=== PATIENT | male | born 1970 | race Caucasian/White ===

== ENCOUNTER 2017-01-01 14:03 | Emergency (ER) | payer SELFPAY ==
[~2017-01-01] VITALS: Ht 180.3 cm; Wt 105.0 kg
[2017-01-01 14:10] VITALS: TEMP 36.6; Ht 180.3 cm; Wt 105.0 kg
[2017-01-01] MEDS ORDERED: SODIUM CHLORIDE 0.9% 1000ML 1,000 ML IV ONE (14:45)
[2017-01-01] MEDS ORDERED: MoRPHine SULFATE 4 MG/ML 1 ML CARP\\VIAL IV PRN (14:45)
--- NOTE | 2017-01-01 14:47 | EMERGENCY ROOM VISIT NOTE ---
History First contact with patient: 14:25 Chief Complaint: RECTAL PAIN Stated Complaint: PAIN IN ANUS AREA, BOWELS Nursing Triage Summary: Pt standing upon my entry into the room. c/o rectal pain. Pt aware to change into gown and the possibility of rectal exam. History of Present Illness The patient is a 46 year old male who presents to the Emergency Room with complaints of rectal pain that has been going on for approximately 1 month. The patient says that about a month ago he felt a "lump" in his rectal area. The lump eventually did go away, but returned approximately a week ago. He is having significant pain with bowel movements. He also notes passing some blood in his stool today. He denies any constipation. No diarrhea. He denies any nausea or vomiting. He denies any fever or chills. He denies any urinary symptoms. Review of Systems 10 system review performed and negative unless noted in HPI or below Past Medical/Surgical History History of kidney stones Family History Cancer Social History Smoking Status: Never Smoker Alcohol Use: none Marital Status: Housing Status: lives with family Occupation Status: employed Current/Historical Medications Scheduled PRN Oxycodone/Acetaminophen 5MG/325MG (Percocet 5MG/325MG), 1-2 TABS PO Q5H PRN for Pain Physical Exam Vital Signs Date Time Temp Pulse Resp B/P (MAP) Pulse Ox O2 Delivery O2 Flow Rate FiO2 01/01/17 17:33 68 16 160/91 97 01/01/17 16:44 68 16 160/91 97 Room Air 01/01/17 14:10 36.6 88 16 156/103 96 Room Air Physical Exam VITALS: Vitals are noted on the nurse's note and reviewed by myself. Vital signs stable. GENERAL: 46-year-old male, in no acute distress, nondiaphoretic, well-developed well-nourished. SKIN: The skin was without rashes, erythema, edema, or bruising. HEAD: Normocephalic atraumatic. MOUTH: Mucous membranes moist. NECK: . No JVD. HEART: Regular rate and rhythm without murmurs gallops or rubs. LUNGS: Clear to auscultation bilaterally without wheezes, rales or rhonchi. No accessory muscle use. ABDOMEN: Positive bowel sounds x 4.Soft, nontender, without organomegaly. No guarding or rebound tenderness. RECTAL: No external hemorrhoids noted. No fissures palpated. No palpable masses or internal hemorrhoids. Significant pain noted. MUSCULOSKELETAL: No muscle atrophy, erythema, or edema noted. Strength 5/5 throughout. NEURO: Patient was alert and oriented to person place and time. Normal sensation to touch. No focal neurological deficits. Medical Decision & Procedures ER Provider Diagnostic Interpretation: Patient Name: SY ALBARRAN Unit Number: [id number] Dictated: 01/01/171625 Transcribed: 01/01/171625 ARG Printed Date/Time: [~ rep prt dt]/[~ rep prt tm] [~ rep ct labl] - [~ rep ct ivnm] [facility] [address] Dictated: 01/01/171625 Transcribed: 01/01/171625 ARG Printed Date/Time: [~ rep prt dt]/[~ rep prt tm] [~ rep ct labl] - [~ rep ct ivnm] CT PELVIS W/IV CONT ONLY (CT) CT DOSE: 376.50 mGy.cm CLINICAL HISTORY: Anal pain. Possible abscess. TECHNIQUE: The patient was scanned in a dynamic helical fashion during intravenous administration 118 cc of Optiray 320. A dose lowering technique was utilized adhering to the principles of ALARA. COMPARISON STUDY: Noncontrast study dated 10/30/2013 FINDINGS: The appendix is visualized and appears normal. There is no evidence of acute sigmoid diverticulitis. There is no evidence of pathologic adenopathy. There is no evidence of pathologic pelvic bowel dilatation. No perianal sinus tracts, or abscesses are visualized. There are no bony destructive lesions. IMPRESSION: No acute findings. No perianal sinus tracts or abscesses identified. Electronically signed by: Donaldo Feliciano M.D. 01/01/2017 4:28 PM Dictated Date/Time: 01/01/2017 4:26 PM The status of this report is Signed. Draft = Not yet reviewed or approved by Radiologist. Signed = Reviewed and approved by Radiologist. <AttendingPhy></AttendingPhy> <FamilyPhy>Haris Hernandez M.D.</FamilyPhy> < PrimaryPhy>Haris Hernandez M.D.</PrimaryPhy> <UnitNumber>[id number]</UnitNumber> < VisitNumber>[id number]</VisitNumber> <PatientName>SY ALBARRAN</ PatientName> <DateOfBirth>1970</DateOfBirth> <Location>[facility]</Location> < ServiceDate>01/01/17</ServiceDate> <MNE>ESINDI</MNE> <OrderingPhy>Latoya Alvarado PA-C</OrderingPhy> <OrderingPhyMNE>f rep ord dr red</OrderingPhyMNE> < DictatingPhyMNE>f rep dict dr red</DictatingPhyMNE> <CCListMNE>f rep ct mne</ CCListMNE> <AdmittingPhyMNE>f pt admit dr red</AdmittingPhyMNE> <AttendingPhyMNE >f pt attend dr red</AttendingPhyMNE> <ConsultingPhyMNE>f pt consult dr red</ConsultingPhyMNE> <FamilyPhyMNE>f pt fam dr red</FamilyPhyMNE> <OtherPhyMNE>f pt other dr red</OtherPhyMNE> < PrimaryPhyMNE>f pt prim care dr red</PrimaryPhyMNE> <ReferringPhyMNE>f pt referring dr red</ReferringPhyMNE> CHEST ONE VIEW PORTABLE CLINICAL HISTORY: Palpable sternal mass ANAL PAIN COMPARISON STUDY: No previous studies for comparison. FINDINGS: The cardiac and mediastinal contours are normal. There is no evidence of focal pulmonary consolidation. There is no evidence of failure. No pleural effusions are visualized.[ History of a noted that an AP study of the chest cannot be utilized to evaluate the sternum. IMPRESSION: No active disease in the chest. Electronically signed by: Donaldo Feliciano M.D. 01/01/2017 3:36 PM Dictated Date/Time: 01/01/2017 3:35 PM The status of this report is Signed. Draft = Not yet reviewed or approved by Radiologist. Signed = Reviewed and approved by Radiologist. <AttendingPhy></AttendingPhy> <FamilyPhy>Haris Hernandez M.D.</FamilyPhy> < PrimaryPhy>Haris Hernandez M.D.</PrimaryPhy> <UnitNumber>[id number]</UnitNumber> < VisitNumber>[id number]</VisitNumber> Laboratory Results 01/01/17 14:55 Red Blood Count 4.92, Mean Corpuscular Volume 87.0, Mean Corpuscular Hemoglobin 31.9, Mean Corpuscular Hemoglobin Concent 36.7, Mean Platelet Volume 9.0, Neutrophils (%) (Auto) 68.5, Lymphocytes (%) (Auto) 21.6, Monocytes (%) (Auto) 6.5, Eosinophils (%) (Auto) 2.1, Basophils (%) (Auto) 0.9, Neutrophils # (Auto) 4.60, Lymphocytes # (Auto) 1.45, Monocytes # (Auto) 0.44, Eosinophils # (Auto) 0.14, Basophils # (Auto) 0.06 01/01/17 14:55 Test 01/01/17 14:55 01/01/17 15:05 White Blood Count 6.72 K/uL (4.8-10.8) Red Blood Count 4.92 M/uL (4.7-6.1) Hemoglobin 15.7 g/dL (14.0-18.0) Hematocrit 42.8 % (42-52) Mean Corpuscular Volume 87.0 fL (80-100) Mean Corpuscular Hemoglobin 31.9 pg (25-34) Mean Corpuscular Hemoglobin Concent 36.7 g/dl (32-36) Platelet Count 222 K/uL (130-400) Mean Platelet Volume 9.0 fL (7.4-10.4) Neutrophils (%) (Auto) 68.5 % Lymphocytes (%) (Auto) 21.6 % Monocytes (%) (Auto) 6.5 % Eosinophils (%) (Auto) 2.1 % Basophils (%) (Auto) 0.9 % Neutrophils # (Auto) 4.60 K/uL (1.4-6.5) Lymphocytes # (Auto) 1.45 K/uL (1.2-3.4) Monocytes # (Auto) 0.44 K/uL (0.11-0.59) Eosinophils # (Auto) 0.14 K/uL (0-0.5) Basophils # (Auto) 0.06 K/uL (0-0.2) RDW Standard Deviation 40.6 fL (36.4-46.3) RDW Coefficient of Variation 12.7 % (11.5-14.5) Immature Granulocyte % (Auto) 0.4 % Immature Granulocyte # (Auto) 0.03 K/uL (0.00-0.02) Anion Gap 6.0 mmol/L (3-11) Est Creatinine Clear Calc Drug Dose 103.4 ml/min Estimated GFR () 92.8 Estimated GFR (Non- 80.1 BUN/Creatinine Ratio 11.2 (10-20) Calcium Level 9.2 mg/dl (8.5-10.1) Total Bilirubin 0.6 mg/dl (0.2-1) Aspartate Amino Transf (AST/SGOT) 20 U/L (15-37) Alanine Aminotransferase (ALT/SGPT) 33 U/L (12-78) Alkaline Phosphatase 67 U/L (45-117) Total Protein 7.9 gm/dl (6.4-8.2) Albumin 3.9 gm/dl (3.4-5.0) Globulin 4.0 gm/dl (2.5-4.0) Albumin/Globulin Ratio 1.0 (0.9-2) Urine Color YELLOW Urine Appearance CLEAR (CLEAR) Urine pH 5.5 (4.5-7.5) Urine Specific [place] 1.026 (1.000-1.030) Urine Protein NEG (NEG) Urine Glucose (UA) NEG (NEG) Urine Ketones NEG (NEG) Urine Occult Blood 1+ (NEG) Urine Nitrite NEG (NEG) Urine Bilirubin NEG (NEG) Urine Urobilinogen NEG (NEG) Urine Leukocyte Esterase NEG (NEG) Urine WBC (Auto) 0 /hpf (0-5) Urine RBC (Auto) 0-4 /hpf (0-4) Urine Hyaline Casts (Auto) 1-5 /lpf (0-5) Urine Epithelial Cells (Auto) 0-5 /lpf (0-5) Urine Bacteria (Auto) NEG (NEG) Medications Administered Medications (Trade) Dose Ordered Sig/Bruna Route Start Time Stop Time Status Last Admin Dose Admin Morphine Sulfate (MoRPHine SULFATE INJ) 4 mg Q1H PRN IV 01/01/17 14:45 01/01/17 17:55 DC 01/01/17 15:01 4 MG Sodium Chloride 1,000 ml @ 999 mls/hr Q1H1M ONCE IV 01/01/17 14:45 01/01/17 15:45 DC 01/01/17 15:02 999 MLS/HR Hydromorphone HCl (Dilaudid Inj) 1 mg STK-MED ONCE .ROUTE 01/01/17 16:46 01/01/17 16:47 DC 01/01/17 16:49 1 MG Hydrocortisone (Proctozone Hc 2.5% Crm) 1 appln NOW ONCE EXT 01/01/17 17:15 01/01/17 17:16 DC 01/01/17 17:20 1 APPLN ED Course Patient was seen and examined Vital signs including blood pressure were reviewed medications list was verified with patient Labs were obtained, and a saline lock was established The patient was given morphine 4 mg IV for pain. He was hydrated with 1 L of normal saline. Imaging was performed and reviewed The patient was reassessed. He was still complaining of pain. He was given 1 dose of Dilaudid 1 mg IV. We discussed the results of his workup. He voiced understanding. He was given 1 tube of Anusol to go I reviewed discharge instructions the patient. They voiced understanding and had no further questions. Medical Decision Differential diagnosis: Internal hemorrhoids, abscess, anal fissure, lower GI bleed this patient is a 46-year-old male presented to the emergency department with complaints of rectal pain. On exam, the patient's abdomen was benign. He did have a significant amount of rectal pain during the digital rectal exam. I cannot palpate any masses or fissures. I ordered a CT of the pelvis to rule out abscess. No acute abnormalities were noted. It is possible that he may have internal hemorrhoids and I am unable to palpate. The patient was advised to follow-up with the GI doctor if his pain persists. He agrees to return to the emergency department with any new or persistent symptoms. This chart was completed in part utilizing [employer] Active Speech Voice Recognition software. Attempts were made to minimize the grammatical errors, random word insertions, pronoun errors and incomplete sentences. Any formal questions or concerns about the content, text or information contained within the body of this dictation should be directly addressed to the provider for clarification. Medication Reconcilliation Current Medication List: was personally reviewed by me Blood Pressure Screening Patient's blood pressure: Elevated blood pressure (advised to follow-up with his primary care physician to have this rechecked.) Impression Primary Impression: Rectal pain Departure Information Dispostion Home / Self-Care Condition GOOD Prescriptions Oxycodone/Acetaminophen 5MG/325MG (PERCOCET 5MG/325MG) Tab 1-2 TABS PO Q5H Y for Pain, #15 TAB For Initial Treatment Prov: Latoya Alvarado PA-C 01/01/17 Referrals Haris Hernandez M.D. (PCP) Patient Instructions My [facility] Additional Instructions You were evaluated in the emergency department for rectal pain. A CAT scan did not show any signs of infection. Please use Anusol cream every 6 hours as needed for discomfort Percocet : Take 1-2 pills every four hours for pain. Avoid alcohol, operating machinery or dangerous equipment, working on ladders or roofs, DRIVING, or situations where being under the influence may be dangerous. It is recommended to use an [id number] stool softener such as Colace, 100mg twice daily while taking this medication to avoid constipation. If the rectal pain persists, you may need to see a GI doctor for possibly a procedure such as a colonoscopy It was also noticed that your blood pressure was elevated in the emergency department. These have this rechecked Return to the emergency department if you have any of the following symptoms: -Fever of 103F or greater -Persistent vomiting - Persistent diarrhea -Lethargy -Chest pain -Shortness of breath -Worsening pain
[2017-01-01 15:08] LABS: BASO % 0.9 %; BASO ABS # 0.06 K/uL (0-0.2); COMPLETE YES; EOS % 2.1 %; HEMATOCRIT 42.8 % (42-52); IG% 0.4 %; LYMPH % 21.6 %; LYMPH ABS # 1.45 K/uL (1.2-3.4); MEAN CORPUSCULAR HEMOGLOBIN 31.9 pg (25-34); MEAN CORPUSCULAR HGB CONC 36.7 g/dl (32-36); MONO % 6.5 %; NEUT % 68.5 %; PLATELET COUNT 222 K/uL (130-400); RED BLOOD COUNT 4.92 M/uL (4.7-6.1); WHITE BLOOD COUNT 6.72 K/uL (4.8-10.8)
[2017-01-01 15:16] LABS: URINE APPEARANCE CLEAR (CLEAR); URINE BILIRUBIN NEG (NEG); URINE COLOR YELLOW; URINE EPITHELIAL CELL AUTO 0-5 /lpf (0-5); URINE NITRITE NEG (NEG); URINE PH 5.5 (4.5-7.5); URINE SPECIFIC GRAVITY 1.026 (1.000-1.030); UROBILINOGEN NEG (NEG)
[2017-01-01 15:17] LABS: MANUAL MICROSCOPIC REQUIRED? NO; REVIEW REQ? NO
[2017-01-01 15:27] LABS: BUN/CREATININE RATIO 11.2 (10-20); CALCIUM 9.2 mg/dl (8.5-10.1); CREATININE 1.1 mg/dl (0.60-1.40); POTASSIUM 3.8 mmol/L (3.5-5.1)
[2017-01-01] MEDS ORDERED: OPTIRAY 320 IV PRN (15:30)
--- NOTE | 2017-01-01 15:37 | DIAGNOSTIC IMAGING REPORT ---
CHEST ONE VIEW PORTABLE CLINICAL HISTORY: Palpable sternal mass ANAL PAIN COMPARISON STUDY: No previous studies for comparison. FINDINGS: The cardiac and mediastinal contours are normal. There is no evidence of focal pulmonary consolidation. There is no evidence of failure. No pleural effusions are visualized.[ History of a noted that an AP study of the chest cannot be utilized to evaluate the sternum. IMPRESSION: No active disease in the chest. Electronically signed by: Donaldo Feliciano M.D. 01/01/2017 3:36 PM Dictated Date/Time: 01/01/2017 3:35 PM
--- NOTE | 2017-01-01 16:30 | DIAGNOSTIC IMAGING REPORT ---
CT PELVIS W/IV CONT ONLY (CT) CT DOSE: 376.50 mGy.cm CLINICAL HISTORY: Anal pain. Possible abscess. TECHNIQUE: The patient was scanned in a dynamic helical fashion during intravenous administration 118 cc of Optiray 320. A dose lowering technique was utilized adhering to the principles of ALARA. COMPARISON STUDY: Noncontrast study dated 10/30/2013 FINDINGS: The appendix is visualized and appears normal. There is no evidence of acute sigmoid diverticulitis. There is no evidence of pathologic adenopathy. There is no evidence of pathologic pelvic bowel dilatation. No perianal sinus tracts, or abscesses are visualized. There are no bony destructive lesions. IMPRESSION: No acute findings. No perianal sinus tracts or abscesses identified. Electronically signed by: Donaldo Feliciano M.D. 01/01/2017 4:28 PM Dictated Date/Time: 01/01/2017 4:26 PM
[2017-01-01] MEDS ORDERED: HYDROmorphone INJ 1 MG/ML SYR ONE (16:46)
[2017-01-01] MEDS ORDERED: HYDROCORTISONE HC 2.5% CRM 30GM TUBE EXT ONE (17:15)
[2017-01-01] MEDS ORDERED: OXYC-57 PO (17:16)
[2017-01-01 17:33] VITALS: BP 160/91; PULSE 68; O2SAT 97
== END 2017-01-01 17:33 | disposition home or self-care (01) ==
LOC: C.EDB 14:04 → C.EDC 17:33
DX: K62.89 Other specified diseases of anus and rectum (principal); Z87.440 Personal history of urinary (tract) infections; Z80.9 Family history of malignant neoplasm, unspecified

== ENCOUNTER 2017-03-03 16:10 | Observation (INO) | payer SELFPAY ==
[~2017-03-03] VITALS: Ht 180.3 cm; Wt 106.8 kg
[~2017-03-03 16:10] MED LIST: OXYC-57 PO
[2017-03-03] MEDS ORDERED: ASPIRIN 81 MG CHEW PO STA (16:19)
[2017-03-03 16:40] LABS: BASO % 0.8 %; BASO ABS # 0.05 K/uL (0-0.2); COMPLETE YES; EOS % 2.2 %; HEMATOCRIT 43.9 % (42-52); IG% 0.6 %; LYMPH % 29.3 %; LYMPH ABS # 1.91 K/uL (1.2-3.4); MEAN CELL VOLUME 86.6 fL (80-100); MEAN CORPUSCULAR HGB CONC 36.9 g/dl (32-36); MEAN PLATELET VOLUME 8.9 fL (7.4-10.4); MONO % 10.1 %; PLATELET COUNT 228 K/uL (130-400); RED BLOOD COUNT 5.07 M/uL (4.7-6.1); WHITE BLOOD COUNT 6.51 K/uL (4.8-10.8)
--- NOTE | 2017-03-03 16:46 | DIAGNOSTIC IMAGING REPORT ---
CHEST ONE VIEW PORTABLE CLINICAL HISTORY: Chest pain. COMPARISON STUDY: Chest radiograph January 31, 2017. FINDINGS: Lung volumes are at the lower limits of normal. No pneumothorax or pleural effusion is present. There is no consolidation or evidence of pulmonary edema. Cardiomediastinal silhouette is normal. Appearance of the chest is unchanged. IMPRESSION: No acute cardiopulmonary findings. Electronically signed by: Sixto Diane M.D. 03/03/2017 4:45 PM Dictated Date/Time: 03/03/2017 4:44 PM
[2017-03-03 16:54] LABS: INR 0.9 (0.9-1.1)
--- NOTE | 2017-03-03 16:55 | EMERGENCY ROOM VISIT NOTE ---
History Report prepared by Thelma: Tiffany Castillo Under the Supervision of: Oleg WhitingO. First contact with patient: 16:16 Chief Complaint: CHEST PAIN Stated Complaint: CHEST PAINS Nursing Triage Summary: triage note: pt reports left sided chest pain x 3 weeks. pt reports pain is constant. History of Present Illness The patient is a 46 year old male who presents to the Emergency Room with complaints of constant chest pain for the past 3 weeks. He states that he woke up one morning with the pain and it has been constant since that time. His pain radiates down his left arm and into his neck and is worsened with exertion. It does not improve with rest. Taking a deep breath exacerbates his pain as well. The patient's gave him 81 mg of aspirin last night and again this morning. He states that this seems to have helped alleviate some of his discomfort. He rates his current pain as a 2/10 in severity. The patient denies nausea, vomiting, SOB, abdominal pain, pain or swelling in his legs. He denies any personal history of blood clots. He has never had a cardiac catheterization or stress test. He called his PCP's office today and was advised to come to the ED for further evaluation. The patient denies any family history of early cardiac disease. notes that he had similar pain last summer, but his current pain is more severe than previous episodes. Source of History: patient, spouse/significant other Onset: 3 weeks ago Position: chest Symptom Intensity: 2/10 Quality: other (radiating ) Timing: constant Modifying Factors (Worsening): exertion, breathing Modifying Factors (Relieving): other (aspirin) Associated Symptoms: + neck pain, No SOB, No nausea, No vomiting, No abdominal pain Note: Chest pain radiates to his left arm. Denies pain and swelling in legs Review of Systems See HPI for pertinent positives & negatives. A total of 10 systems reviewed and were otherwise negative. Past Medical & Surgical Medical Problems: (1) Asthma (2) Rectal pain (3) Ureteral calculus, right (4) Ureteral calculus, right Family History Cancer Diabetes mellitus Hypertension Social History Smoking Status: Never Smoker Smokeless Tobacco Use: Yes Alcohol Use: none Marital Status: Housing Status: lives with family Occupation Status: employed Current/Historical Medications No Active Prescriptions or Reported Meds Allergies Coded Allergies: No Known Allergies (Verified , 03/03/17) Physical Exam Vital Signs Date Time Temp Pulse Resp B/P (MAP) Pulse Ox O2 Delivery O2 Flow Rate FiO2 03/03/17 16:40 95 Room Air 03/03/17 16:40 82 19 154/101 96 Room Air 03/03/17 16:33 Room Air 03/03/17 16:28 79 03/03/17 16:12 36.7 85 18 180/98 95 Room Air Physical Exam GENERAL: Patient is awake, alert, and in no acute distress. Patient is resting comfortably and showing no signs of anxiety EYES: The conjunctivae are clear. The pupils are round and reactive. EARS, NOSE, MOUTH AND THROAT: The nose is without any evidence of any deformity. Mucous membranes are moist tongue is midline NECK: The neck is nontender and supple. RESPIRATORY: Normal respiratory effort is noted there is no evidence of wheezing rhonchi or rales CARDIOVASCULAR: Regular rate and rhythm noted there no murmurs rubs or gallops normal S1 normal S2 GASTROINTESTINAL: The abdomen is soft. Bowel sounds are present in all quadrants. Abdomen is nontender MUSCULOSKELETAL/EXTREMITIES: There is no evidence of gross deformity full range of motion is noted in the hips and shoulders SKIN: There is no obvious evidence of any rash. There are no petechiae, pallor or cyanosis noted. NEUROLOGIC: Patient is awake alert and oriented x3 Medical Decision & Procedures ER Provider Diagnostic Interpretation: Radiology results as stated below per my review and radiologist interpretation: CHEST ONE VIEW PORTABLE CLINICAL HISTORY: Chest pain. COMPARISON STUDY: Chest radiograph January 31, 2017. FINDINGS: Lung volumes are at the lower limits of normal. No pneumothorax or pleural effusion is present. There is no consolidation or evidence of pulmonary edema. Cardiomediastinal silhouette is normal. Appearance of the chest is unchanged. IMPRESSION: No acute cardiopulmonary findings. Electronically signed by: Sixto Diane M.D. 03/03/2017 4:45 PM Dictated Date/Time: 03/03/2017 4:44 PM Laboratory Results 03/03/17 16:28 Red Blood Count 5.07, Mean Corpuscular Volume 86.6, Mean Corpuscular Hemoglobin 32.0, Mean Corpuscular Hemoglobin Concent 36.9, Mean Platelet Volume 8.9, Neutrophils (%) (Auto) 57.0, Lymphocytes (%) (Auto) 29.3, Monocytes (%) (Auto) 10.1, Eosinophils (%) (Auto) 2.2, Basophils (%) (Auto) 0.8, Neutrophils # (Auto ) 3.71, Lymphocytes # (Auto) 1.91, Monocytes # (Auto) 0.66, Eosinophils # (Auto ) 0.14, Basophils # (Auto) 0.05 03/03/17 16:28 Test 03/03/17 16:28 03/03/17 16:32 White Blood Count 6.51 K/uL (4.8-10.8) Red Blood Count 5.07 M/uL (4.7-6.1) Hemoglobin 16.2 g/dL (14.0-18.0) Hematocrit 43.9 % (42-52) Mean Corpuscular Volume 86.6 fL (80-100) Mean Corpuscular Hemoglobin 32.0 pg (25-34) Mean Corpuscular Hemoglobin Concent 36.9 g/dl (32-36) Platelet Count 228 K/uL (130-400) Mean Platelet Volume 8.9 fL (7.4-10.4) Neutrophils (%) (Auto) 57.0 % Lymphocytes (%) (Auto) 29.3 % Monocytes (%) (Auto) 10.1 % Eosinophils (%) (Auto) 2.2 % Basophils (%) (Auto) 0.8 % Neutrophils # (Auto) 3.71 K/uL (1.4-6.5) Lymphocytes # (Auto) 1.91 K/uL (1.2-3.4) Monocytes # (Auto) 0.66 K/uL (0.11-0.59) Eosinophils # (Auto) 0.14 K/uL (0-0.5) Basophils # (Auto) 0.05 K/uL (0-0.2) RDW Standard Deviation 40.3 fL (36.4-46.3) RDW Coefficient of Variation 12.7 % (11.5-14.5) Immature Granulocyte % (Auto) 0.6 % Immature Granulocyte # (Auto) 0.04 K/uL (0.00-0.02) Prothrombin Time 10.0 SECONDS (9.0-12.0) Prothromb Time International Ratio 0.9 (0.9-1.1) Activated Partial Thromboplast Time 26.8 SECONDS (21.0-31.0) Partial Thromboplastin Ratio 1.0 Anion Gap 8.0 mmol/L (3-11) Est Creatinine Clear Calc Drug Dose 93.0 ml/min Estimated GFR () 80.3 Estimated GFR (Non- 69.3 BUN/Creatinine Ratio 10.9 (10-20) Calcium Level 8.8 mg/dl (8.5-10.1) Total Bilirubin 0.5 mg/dl (0.2-1) Direct Bilirubin 0.1 mg/dl (0-0.2) Aspartate Amino Transf (AST/SGOT) 18 U/L (15-37) Alanine Aminotransferase (ALT/SGPT) 37 U/L (12-78) Alkaline Phosphatase 66 U/L (45-117) Troponin I < 0.015 ng/ml (0-0.045) Total Protein 7.8 gm/dl (6.4-8.2) Albumin 3.8 gm/dl (3.4-5.0) Lipase 189 U/L (73-393) Bedside D-Dimer 217 ng/mlFEU (0-450) Laboratory results per my review. Medications Administered Medications (Trade) Dose Ordered Sig/Bruna Route Start Time Stop Time Status Last Admin Dose Admin Aspirin (Aspirin Chew) 324 mg NOW STAT PO 03/03/17 16:19 03/03/17 16:20 DC 03/03/17 16:40 324 MG ECG Indication: chest pain Rate (beats per minute): 80 Rhythm: normal sinus Findings: no acute ischemic change, no ectopy Comparison ECG Date: no prior available ED Course 1616: The patient was evaluated in room C2B. A complete history and physical examination were performed. 1619: Aspirin 324 mg PO 1717: I spoke with Maria Elena Menon PA-C. We discussed the patients case. [facility] 1721: I reassessed the patient at this time. He is feeling better and resting comfortably. I discussed the results and treatment plan with the patient. I answered all pertaining questions that he had. He expressed understanding and verbalized agreement. Medical Decision Differential diagnosis: Etiologies such as cardiac ischemia, aortic dissection, pulmonary embolism, pneumonia, pneumothorax, musculoskeletal, infections, pericarditis, myocarditis , esophageal rupture, gastrointestinal, as well as others were entertained. Nursing notes reviewed. Additional history is obtained from the patient's significant other. The patient is a 46-year-old male who presented to emergency department for an evaluation of chest discomfort with radiation to the neck and the arm. The patient's pain appeared worsened with exertion. I discussed the patient's laboratory and radiographic studies with him. I also discussed the limitations of the emergency department workup for chest pain with him. Given the patient's symptoms as well as his risk factors I discussed his case with the on-call [facility] hospitalist. They've agreed to evaluate the patient in the emergency department for further management and disposition. The patient was treated with aspirin in the emergency department. Medication Reconcilliation Current Medication List: was personally reviewed by me Blood Pressure Screening Patient's blood pressure: Elevated blood pressure Blood pressure disposition: Elevated BP felt to be situational Consults Time Called: 1714 Consulting Physician: Maria Elena Menon PA-C Returned Call: [phone] I spoke with Maria Elena Menon PA-C. We discussed the patients case. [facility]. Impression Primary Impression: Substernal chest pain Scribe Attestation The scribe's documentation has been prepared under my direction and personally reviewed by me in its entirety. I confirm that the note above accurately reflects all work, treatment, procedures, and medical decision making performed by me. Departure Information Dispostion Being Evaluated By Hospitalist Prescriptions No Active Prescriptions or Reported Meds Referrals Haris Heranndez M.D. (PCP) Patient Instructions My [facility]
[2017-03-03 16:59] LABS: BLOOD UREA NITROGEN 13 mg/dl (7-18); BUN/CREATININE RATIO 10.9 (10-20); CALCIUM 8.8 mg/dl (8.5-10.1); CARBON DIOXIDE 25 mmol/L (21-32); CHLORIDE 105 mmol/L (98-107); CREATININE 1.24 mg/dl (0.60-1.40); GLUCOSE 90 mg/dl (70-99); POTASSIUM 4.1 mmol/L (3.5-5.1); SODIUM 138 mmol/L (136-145)
[2017-03-03 17:00] LABS: ALT/SGPT 37 U/L (12-78); AST/SGOT 18 U/L (15-37)
[2017-03-03 17:04] LABS: ALKALINE PHOSPHATASE 66 U/L (45-117)
[2017-03-03] MEDS ORDERED: IV FLUIDS COMPLETED PRN (18:00)
--- NOTE | 2017-03-03 18:38 | History and Physical ---
History & Physical Date & Time of Service: Mar 03, 2017 at 18:11 Chief Complaint: Chest Pains Primary Care Physician: Haris Hernandez M.D. History of Present Illness Source: patient, family This is a 46 year old M who has assigned physician of Dr. Hernandez on his insurance but has never seen David Rodriguez in the past, who was brought to the ED from his , because of patient's chronically recurring chest pain one episode of which was present earlier today. The patient himself while awake and alert has vague descriptions of the chest pain and cannot correlate what makes the discomfort better or worse. Patient reports that chest pain can be left sided with pain of his left neck and arm. This problem appears to have been ongoing for months. 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 In other review of systems, patient reports no to headache, lightheadedness, shortness of breath, palpitations, abdominal pain, changes in urination, or changes in bowel movements, or edema Patient denies regular medications at home because he has never been diagnosed with health problems Denies toxic habits of smoking, alcohol, or drugs Family history of mother with palpitations, family history of cancer and diabetes EKG 80 beats per minute normal sinue rythm with incomplete right bundle branch block, troponin negative x 1 Vitals when examined by hospitalist, 96 bpm, blood pressure 154/101, breathing on room air and saturating above 95% Past Medical/Surgical History Medical Problems: (1) Asthma Status: Chronic (2) Rectal pain Status: Resolved (3) Ureteral calculus, right Status: Resolved (4) Ureteral calculus, right Status: Resolved Family History Cancer Diabetes mellitus Hypertension Social History Smoking Status: Never Smoker Smokeless Tobacco Use: Yes Marital Status: Occupational Status: employed Multi-Drug Resistant Organisms History of MDRO: No Allergies Coded Allergies: No Known Allergies (Verified , 03/03/17) Home Medications No Active Prescriptions or Reported Meds Review of Systems Constitutional: No fever, No weakness, No fatigue Eyes: No worsening of vision, No discharge ENT: No hearing loss, No unusual epistaxis, No nasal symptoms, No sore throat, No trouble swallowing Respiratory: No cough, No sputum, No wheezing, No shortness of breath, No hemoptysis Cardiovascular: + chest pain, No edema, No palpitations Abdomen: No pain, No nausea, No vomiting, No diarrhea, No constipation Musculoskeletal: No joint pain, No muscle pain, No swelling, No calf pain Genitourinary - Male: No dysuria Neurologic: No numbness/tingling Psychiatric: No substance abuse Endocrine: No fatigue Hematologic / Lymphatic: No abnormal bleeding/bruising Integumentary: No rash, No itch Physical Exam Vital Signs Date Time Temp Pulse Resp B/P (MAP) Pulse Ox O2 Delivery O2 Flow Rate FiO2 03/03/17 16:40 95 Room Air 03/03/17 16:40 82 19 154/101 96 Room Air 03/03/17 16:33 Room Air 03/03/17 16:28 79 03/03/17 16:12 36.7 85 18 180/98 95 Room Air General Appearance: WD/WN, no apparent distress Head: normocephalic, atraumatic Eyes: normal inspection, EOMI, sclerae normal ENT: normal ENT inspection, hearing grossly normal, pharynx normal Neck: supple, thyroid normal, no JVD, no carotid bruits, trachea midline Respiratory/Chest: chest non-tender, lungs clear, normal breath sounds, no respiratory distress, no accessory muscle use Cardiovascular: regular rate, rhythm, no edema, no gallop, no JVD, no murmur, normal peripheral pulses Abdomen/GI: normal bowel sounds, non tender, soft Back: normal inspection, no CVA tenderness, no muscle spasm, normal range of motion Extremities/Musculoskelatal: normal inspection, no calf tenderness, normal capillary refill, no pedal edema, normal range of motion, non-tender Neurologic/Psych: no motor/sensory deficits, normal mood/affect, normal reflexes, oriented x 3 Skin: normal color, warm/dry, no rash Diagnostics Laboratory Results Results Past 24 Hours Test 03/03/17 16:28 03/03/17 16:32 Range/Units White Blood Count 6.51 4.8-10.8 K/uL Red Blood Count 5.07 4.7-6.1 M/uL Hemoglobin 16.2 14.0-18.0 g/dL Hematocrit 43.9 42-52 % Mean Corpuscular Volume 86.6 80-100 fL Mean Corpuscular Hemoglobin 32.0 25-34 pg Mean Corpuscular Hemoglobin Concent 36.9 32-36 g/dl Platelet Count 228 130-400 K/uL Mean Platelet Volume 8.9 7.4-10.4 fL Neutrophils (%) (Auto) 57.0 % Lymphocytes (%) (Auto) 29.3 % Monocytes (%) (Auto) 10.1 % Eosinophils (%) (Auto) 2.2 % Basophils (%) (Auto) 0.8 % Neutrophils # (Auto) 3.71 1.4-6.5 K/uL Lymphocytes # (Auto) 1.91 1.2-3.4 K/uL Monocytes # (Auto) 0.66 0.11-0.59 K/uL Eosinophils # (Auto) 0.14 0-0.5 K/uL Basophils # (Auto) 0.05 0-0.2 K/uL RDW Standard Deviation 40.3 36.4-46.3 fL RDW Coefficient of Variation 12.7 11.5-14.5 % Immature Granulocyte % (Auto) 0.6 % Immature Granulocyte # (Auto) 0.04 0.00-0.02 K/uL Prothrombin Time 10.0 9.0-12.0 SECONDS Prothromb Time International Ratio 0.9 0.9-1.1 Activated Partial Thromboplast Time 26.8 21.0-31.0 SECONDS Partial Thromboplastin Ratio 1.0 Sodium Level 138 136-145 mmol/L Potassium Level 4.1 3.5-5.1 mmol/L Chloride Level 105 98-107 mmol/L Carbon Dioxide Level 25 21-32 mmol/L Anion Gap 8.0 3-11 mmol/L Blood Urea Nitrogen 13 7-18 mg/dl Creatinine 1.24 0.60-1.40 mg/dl Est Creatinine Clear Calc Drug Dose 93.0 ml/min Estimated GFR () 80.3 Estimated GFR (Non- 69.3 BUN/Creatinine Ratio 10.9 10-20 Random Glucose 90 70-99 mg/dl Calcium Level 8.8 8.5-10.1 mg/dl Total Bilirubin 0.5 0.2-1 mg/dl Direct Bilirubin 0.1 0-0.2 mg/dl Aspartate Amino Transf (AST/SGOT) 18 15-37 U/L Alanine Aminotransferase (ALT/SGPT) 37 12-78 U/L Alkaline Phosphatase 66 45-117 U/L Troponin I < 0.015 0-0.045 ng/ml Total Protein 7.8 6.4-8.2 gm/dl Albumin 3.8 3.4-5.0 gm/dl Lipase 189 73-393 U/L Bedside D-Dimer 217 0-450 ng/mlFEU Diagnostic Radiology CLINICAL HISTORY: Chest pain. FINDINGS: Lung volumes are at the lower limits of normal. No pneumothorax or pleural effusion is present. There is no consolidation or evidence of pulmonary edema. Cardiomediastinal silhouette is normal. Appearance of the chest is unchanged. IMPRESSION: No acute cardiopulmonary findings. EKG 80 bpm Normal sinus rhythm Incomplete right bundle branch block Impression Assessment and Plan 46 year old M with recurrent chest pain symptoms here for rule out ACS. trend troponins, EKGs observation telemetry NPO after midnight for stress test trend blood pressure, patient may have component of hypertension DVT ppx: SCD Level of Care Telemetry Resuscitation Status FULL RESUSCITATION VTE Prophylaxis VTE Risk Assessment Done? Y/N: Yes Risk Level: Moderate
[2017-03-03 19:15] VITALS: BP 157/104; PULSE 72; TEMP 36.7; O2SAT 96; Ht 180.3 cm; Wt 106.8 kg
[2017-03-03 21:39] VITALS: BP 146/85; PULSE 71
[2017-03-04 00:03] VITALS: BP 134/79; PULSE 70; TEMP 36.5; O2SAT 95
[2017-03-04 03:44] VITALS: BP 125/77; PULSE 69; TEMP 36.3; O2SAT 95
[2017-03-04 07:00] LABS: BASO ABS # 0.05 K/uL (0-0.2); COMPLETE YES; EOS % 3.3 %; HEMATOCRIT 44.2 % (42-52); IG% 0.4 %; LYMPH % 27.9 %; LYMPH ABS # 1.43 K/uL (1.2-3.4); MEAN CELL VOLUME 87.4 fL (80-100); MEAN CORPUSCULAR HGB CONC 35.5 g/dl (32-36); MEAN PLATELET VOLUME 8.8 fL (7.4-10.4); MONO % 10.5 %; NEUT % 56.9 %; PLATELET COUNT 209 K/uL (130-400); RED BLOOD COUNT 5.06 M/uL (4.7-6.1); WHITE BLOOD COUNT 5.12 K/uL (4.8-10.8)
[2017-03-04 07:29] VITALS: BP 143/88; PULSE 73; TEMP 36.6; O2SAT 96
[2017-03-04 07:43] LABS: ALT/SGPT 33 U/L (12-78); BLOOD UREA NITROGEN 14 mg/dl (7-18); BUN/CREATININE RATIO 11.3 (10-20); CALCIUM 9.1 mg/dl (8.5-10.1); CARBON DIOXIDE 29 mmol/L (21-32); CHLORIDE 105 mmol/L (98-107); CHOLESTEROL 228 mg/dl (0-200); GLUCOSE 90 mg/dl (70-99); POTASSIUM 4.3 mmol/L (3.5-5.1); SODIUM 139 mmol/L (136-145); TRIGLYCERIDES 211 mg/dl (0-150); VERY LOW DENSITY LIPOPROT CALC 42 mg/dl
[2017-03-04 07:48] LABS: ALKALINE PHOSPHATASE 58 U/L (45-117); AST/SGOT 18 U/L (15-37); CHOLESTEROL/HDL RATIO 6.3; HDL CHOLESTEROL 36 mg/dl; LDL CHOLESTEROL CALCULATED 150 mg/dl
[2017-03-04 08:11] LABS: ESTIMATED AVERAGE GLUCOSE 103 mg/dl; HA1C FLAG Normal (Normal)
[2017-03-04 10:58] VITALS: BP 157/92; PULSE 84; TEMP 36.7; O2SAT 97
--- NOTE | 2017-03-04 12:09 | Progress Note ---
Medicine Progress Note Date & Time of Visit: Mar 04, 2017 at 12:09 . Subjective Treadmill stress echo went well. No chest pain or SOB. . Objective Last 8 Hrs Date Time Temp Pulse Resp B/P (MAP) Pulse Ox O2 Delivery O2 Flow Rate FiO2 03/04/17 10:58 36.7 84 24 157/92 (113) 97 Room Air 03/04/17 07:29 36.6 73 22 143/88 (106) 96 Room Air Physical Exam: General- no distress Neck- no JVD Lungs- clear Heart- RRR, no gallop Abdomen- + BS, soft, nontender Extremities- no pretibial edema or calf tenderness Neuro- alert . Laboratory Results: Last 24 Hours Test 03/03/17 16:28 03/03/17 16:32 03/03/17 20:15 03/04/17 06:43 White Blood Count 6.51 K/uL 5.12 K/uL Red Blood Count 5.07 M/uL 5.06 M/uL Hemoglobin 16.2 g/dL 15.7 g/dL Hematocrit 43.9 % 44.2 % Mean Corpuscular Volume 86.6 fL 87.4 fL Mean Corpuscular Hemoglobin 32.0 pg 31.0 pg Mean Corpuscular Hemoglobin Concent 36.9 g/dl 35.5 g/dl Platelet Count 228 K/uL 209 K/uL Mean Platelet Volume 8.9 fL 8.8 fL Neutrophils (%) (Auto) 57.0 % 56.9 % Lymphocytes (%) (Auto) 29.3 % 27.9 % Monocytes (%) (Auto) 10.1 % 10.5 % Eosinophils (%) (Auto) 2.2 % 3.3 % Basophils (%) (Auto) 0.8 % 1.0 % Neutrophils # (Auto) 3.71 K/uL 2.91 K/uL Lymphocytes # (Auto) 1.91 K/uL 1.43 K/uL Monocytes # (Auto) 0.66 K/uL 0.54 K/uL Eosinophils # (Auto) 0.14 K/uL 0.17 K/uL Basophils # (Auto) 0.05 K/uL 0.05 K/uL RDW Standard Deviation 40.3 fL 40.9 fL RDW Coefficient of Variation 12.7 % 12.8 % Immature Granulocyte % (Auto) 0.6 % 0.4 % Immature Granulocyte # (Auto) 0.04 K/uL 0.02 K/uL Prothrombin Time 10.0 SECONDS Prothromb Time International Ratio 0.9 Activated Partial Thromboplast Time 26.8 SECONDS Partial Thromboplastin Ratio 1.0 Sodium Level 138 mmol/L 139 mmol/L Potassium Level 4.1 mmol/L 4.3 mmol/L Chloride Level 105 mmol/L 105 mmol/L Carbon Dioxide Level 25 mmol/L 29 mmol/L Anion Gap 8.0 mmol/L 5.0 mmol/L Blood Urea Nitrogen 13 mg/dl 14 mg/dl Creatinine 1.24 mg/dl 1.20 mg/dl Est Creatinine Clear Calc Drug Dose 93.0 ml/min 95.6 ml/min Estimated GFR () 80.3 83.5 Estimated GFR (Non- 69.3 72.1 BUN/Creatinine Ratio 10.9 11.3 Random Glucose 90 mg/dl 90 mg/dl Calcium Level 8.8 mg/dl 9.1 mg/dl Total Bilirubin 0.5 mg/dl 0.7 mg/dl Direct Bilirubin 0.1 mg/dl Aspartate Amino Transf (AST/SGOT) 18 U/L 18 U/L Alanine Aminotransferase (ALT/SGPT) 37 U/L 33 U/L Alkaline Phosphatase 66 U/L 58 U/L Troponin I < 0.015 ng/ml < 0.015 ng/ml < 0.015 ng/ml Total Protein 7.8 gm/dl 7.1 gm/dl Albumin 3.8 gm/dl 3.6 gm/dl Lipase 189 U/L Bedside D-Dimer 217 ng/mlFEU Estimated Average Glucose 103 mg/dl Hemoglobin A1c 5.2 % Globulin 3.5 gm/dl Albumin/Globulin Ratio 1.0 Triglycerides Level 211 mg/dl Cholesterol Level 228 mg/dl HDL Cholesterol 36 mg/dl LDL Cholesterol, Calculated 150 mg/dl VLDL Cholesterol, Calculated 42 mg/dl Cholesterol/HDL Ratio 6.3 Other Studies: EKG performed at 06:50 reviewed and demonstrated NSR at 76 / minute, no acute changes. . Assessment & Plan CHEST PAIN D-dimer normal, -n-o- so pulmonary embolism very unlikely. [error corrected ISAEL 03/05/17 @ 09:02] Serial cardiac markers normal. No acute EKG changes. No ischemic changes during treadmill stress echo with adequate workload. CT of abdomen in 2013 demonstrated coronary calcifications. ASA 81 mg daily, lipid management, healthy lifestyle recommended. DYSLIPIDEMIA Lipid profile: Item Value Date Time Cholesterol Level 228 mg/dl H 03/04/17 06 LDL Cholesterol, Calculated 150 mg/dl 03/04/17 06 VLDL Cholesterol, Calculated 42 mg/dl 03/04/17 06 HDL Cholesterol 36 mg/dl 03/04/17 06 Cholesterol/HDL Ratio 6.3 03/04/17 06 Triglycerides Level 211 mg/dl H 03/04/17 0643 Will start statin in light of coronary calcifications on previous CT scan. Atorvastatin 40 mg daily. ELEVATED BLOOD PRESSURES Blood pressures fluctuated with initial reading of 180/98 in ED. Subsequent blood pressures as low as 125/77 without any antihypertensive therapy. Follow. VTE PROPHYLAXIS Low risk. VTE prophylaxis not indicated. Ambulating. DISPOSITION Discharge to home. Family Medicine follow-up with Dr. Hernandez. . Current Inpatient Medications: Current Inpatient Medications Medications (Trade) Dose Ordered Sig/Bruna Route Start Time Stop Time Status Last Admin Dose Admin Miscellaneous (Iv Fluids Completed) 1 ea PRN PRN N/A 03/03/17 18:00 03/03/18 17:59
[2017-03-04] MEDS ORDERED: ASPEC81 PO (12:11)
[2017-03-04] MEDS ORDERED: LPT40 PO (12:11)
--- NOTE | 2017-03-04 12:17 | EXERCISE STRESS ECHO ---
*NOTICE TO RECEIVING CONSTITUTION PARTY AGENCY This information is strictly Confidential and protected under [place] law. [place] law prohibits you from making any further disclosure of this information unless further disclosure is expressly permitted by the written consent of the person to whom it pertains or is authorized by law. A general authorization for the release of medical or other information is not sufficient for this purpose. Hospital accepts no responsibility if the information is made available to any other person, INCLUDING THE PATIENT. Interpretation Summary * Name: SY ALBARRAN Study Date: 03/04/2017 08:00 AM BP: 139/88 mmHg * Patient Location: C.2T\S\E220\S\1 HR: 98 * : 1970 (M/d/yyyy) Gender: Male Height: 70 in * Age: 46 yrs Ethnicity: CA Weight: 238 lb * Ordering Physician: Titi Morales * Referring Physician: Haris Hernandez * Performed By: Lety Mercer RDCS * * Reason For Study: Chest Pain * BSA: 2.2 m2 * STRESS STUDY: Normal exercise stress echocardiogram. No echocardiographic or ECG evidence of myocardial ischemia having achieved heart rate adequate for diagnostic purposes. * -- Conclusions -- * STRESS STUDY: Normal exercise stress echocardiogram. No echocardiographic or ECG evidence of myocardial ischemia having achieved heart rate adequate for diagnostic purposes. Procedure Details * ECHOEX, CPT #[id number] * ECHO DOPPLER, CPT #[id number] * ECHO COLOR FLOW, CPT #[id number] Left Ventricle * The left ventricle is normal in size. * There is borderline concentric left ventricular hypertrophy. * Ejection Fraction = 60-65%. * The left ventricular wall motion is normal at rest. Right Ventricle * The right ventricle is normal size. * The right ventricular systolic function is normal. Atria * The left atrial size is normal. * Right atrial size is normal. * The interatrial septum is intact with no evidence for an atrial septal defect. Mitral Valve * The mitral valve is normal in structure and function. Tricuspid Valve * The tricuspid valve is normal in structure and function. Aortic Valve * The aortic valve is normal in structure and function. Pulmonic Valve * The pulmonic valve is not well visualized. Great Vessels * The aortic root and proximal ascending aorta are normal sized. Pericardium * There is no pericardial effusion. Stress Parameters * Normal baseline electrocardiogram. * The stress ECG response was normal * Stress ECG: No ST changes. No arrhythmias. * The stress portion of this study was personally supervised by the undersigned interpreting physician. * Rest heart rate was '98' BPM. * Rest blood pressure was '139/88' * Maximum heart rate achieved was 169 bpm. * Maximum heart rate was 97 % of maximum age-predicted heart rate. * Maximum blood pressure was '198/95' * Total exercise time was '07:58' * Maximum exercise MET level achieved was '10.00' METS * Maximum treadmill speed was '3.40' miles per hour. * Maximum treadmill elevation was '14.00'% grade. Right Ventricle * The right ventricular wall motion is normal. MMode 2D Measurements and Calculations IVSd 1.0 cm IVSs 1.4 cm LVIDd 5.2 cm LVIDs 3.4 cm LVPWd 0.95 cm LVPWs 1.7 cm IVS/LVPW 1.1 FS 35.1 % EDV(Teich) 129.8 ml ESV(Teich) 46.6 ml EF(Teich) 64.1 % EDV(cubed) 141.0 ml ESV(cubed) 38.5 ml EF(cubed) 72.7 % % IVS thick 35.4 % % LVPW thick 84.2 % LV mass(C)d 187.7 grams LV mass(C)dI 83.5 grams/m\S\2 LV mass(C)s 194.4 grams LV mass(C)sI 86.5 grams/m\S\2 SV(Teich) 83.1 ml SI(Teich) 37.0 ml/m\S\2 SV(cubed) 102.5 ml SI(cubed) 45.6 ml/m\S\2 Ao root diam 2.7 cm Ao root area 5.9 cm\S\2 ACS 2.3 cm LA dimension 3.5 cm LA/Ao 1.3 LVAd ap4 31.9 cm\S\2 LVLd ap4 8.8 cm EDV(MOD-sp4) 98.6 ml EDV(sp4-el) 98.4 ml LVAs ap4 18.2 cm\S\2 LVLs ap4 7.2 cm ESV(MOD-sp4) 41.1 ml ESV(sp4-el) 39.2 ml EF(MOD-sp4) 58.3 % EF(sp4-el) 60.1 % LVAd ap2 33.4 cm\S\2 LVLd ap2 9.1 cm EDV(MOD-sp2) 105.1 ml EDV(sp2-el) 104.3 ml LVAs ap2 19.8 cm\S\2 LVLs ap2 8.0 cm ESV(MOD-sp2) 42.1 ml ESV(sp2-el) 41.7 ml EF(MOD-sp2) 60.0 % EF(sp2-el) 60.0 % LVLd %diff 3.5 % EDV(MOD-bp) 103.2 ml LVLs %diff 9.7 % ESV(MOD-bp) 43.4 ml EF(MOD-bp) 57.9 % SV(MOD-sp4) 57.4 ml SI(MOD-sp4) 25.6 ml/m\S\2 SV(MOD-sp2) 63.0 ml SI(MOD-sp2) 28.0 ml/m\S\2 SV(MOD-bp) 59.7 ml SI(MOD-bp) 26.6 ml/m\S\2 SV(sp4-el) 59.2 ml SI(sp4-el) 26.3 ml/m\S\2 SV(sp2-el) 62.6 ml SI(sp2-el) 27.9 ml/m\S\2 Doppler Measurements and Calculations MV E max amber 85.8 cm/sec MV A max amber 50.5 cm/sec MV E/A 1.7 MV dec time 0.20 sec Ao V2 max 116.5 cm/sec Ao max PG 5.4 mmHg Ao max PG (full) 1.4 mmHg LV V1 max PG 4.1 mmHg LV V1 max 100.9 cm/sec PA V2 max 141.5 cm/sec PA max PG 8.0 mmHg PI max amber 126.8 cm/sec PI max PG 6.4 mmHg PI dec slope 72.1 cm/sec\S\2 PI P1/2t 515.5 msec TR max amber 205.1 cm/sec
--- NOTE | 2017-03-04 12:20 | Discharge Instructions ---
Discharge Instructions Date of Service Mar 04, 2017. Admission Reason for Admission: chest discomfort . Discharge Discharge Diagnosis / Problem: chest discomfort- no sign of heart attack Discharge Goals Goal(s): Improve disease control Activity Recommendations Activity Limitations: resume your previous activity . Instructions / Follow-Up Instructions / Follow-Up APPOINTMENTS: FAMILY MEDICINE [facility]12[facility]2017 12[facility]40 [facility] OTHER INSTRUCTIONS: There was no sign of a heart attack. You did well with the stress test. This indicates that you don't have any severe blockage in the large coronary arteries. You probably have some hardening of the arteries as seen on CT scan in 2013. Cholesterol is a bit high. Best to lower it with medications and diet to reduce risk of heart attack and stroke in the future. Take atorvastatin (Lipitor) 40 mg daily. Possible side effects are muscle aches, muscle weakness, liver problems. Take aspirin 81 mg daily to help prevent heart attacks and strokes. Blood pressure was slightly high at times. Dr. Hernandez will follow your blood pressure in clinic and may recommend treatment if it remains high. Seek medical attention if you have: * chest pain, chest discomfort, or trouble breathing * abdominal pain, nausea, vomiting * diarrhea, dark stools or bloody stools * dark urine * unusual muscle aches or weakness * any unanswered questions or concerns Call [phone] if symptoms are severe. Call if you have any questions or problems. My cell # is [phone]. You can also reach a Daryl hospitalist on duty at [facility] 24 hours a day by calling [phone]. Please take good care of yourself. Gutierrez Robledo . Current Hospital Diet Patient's current hospital diet: AHA Diet (Heart Healthy), Low Sodium Diet (2gm Na) Discharge Diet Recommended Diet: AHA Diet (Heart Healthy) Pending Studies Studies pending at discharge: no Laboratory Results Hemoglobin A1c Test 03/04/17 06:43 Range/Units Estimated Average Glucose 103 mg/dl Hemoglobin A1c 5.2 4.5-5.6 % Lipid Panel Test 03/04/17 06:43 Range/Units Triglycerides Level 211 H 0-150 mg/dl Cholesterol Level 228 H 0-200 mg/dl HDL Cholesterol 36 mg/dl Cholesterol/HDL Ratio 6.3 LDL Cholesterol, Calculated 150 mg/dl Medical Emergencies . Who to Call and When: Medical Emergencies: If at any time you feel your situation is an emergency, please call 911 immediately. . Non-Emergent Contact Non-Emergency issues call your: Primary Care Provider, Hospital Doctor . . "Provider Documentation" section prepared by Gutierrez Robledo. . VTE Core Measure Inpt VTE Proph given/why not?: SCD's
[2017-03-04 12:24] VITALS: BP 157/92; PULSE 84; TEMP 36.7; O2SAT 97
--- NOTE | 2017-03-05 09:01 | Discharge Summary ---
Discharge Summary Date of Service Mar 05, 2017. Discharge Summary Admission Date: Mar 03, 2017 at 17:56 Discharge Date: Mar 04, 2017 Discharge Disposition: Home Principal Diagnosis: chest pain (AL and PE ruled out) . Procedures: cardiac monitoring treadmill stress echo . Medication Reconciliation New Medications: Aspirin (Aspirin EC Low Dose) 81 Mg Ectab 81 MG PO DAILY, #30 TAB 99 Refills No prescription necessary. Atorvastatin (Atorvastatin Calcium) 40 Mg Tab 40 MG PO DAILY, #30 TABS 5 Refills Admission Information HPI (per Admitting provider): This is a 46 year old M who has assigned physician of Dr. Hernandez on his insurance but has never seen David Rodriguez in the past, who was brought to the ED from his , because of patient's chronically recurring chest pain one episode of which was present earlier today. The patient himself while awake and alert has vague descriptions of the chest pain and cannot correlate what makes the discomfort better or worse. Patient reports that chest pain can be left sided with pain of his left neck and arm. This problem appears to have been ongoing for months. 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 In other review of systems, patient reports no to headache, lightheadedness, shortness of breath, palpitations, abdominal pain, changes in urination, or changes in bowel movements, or edema Patient denies regular medications at home because he has never been diagnosed with health problems Denies toxic habits of smoking, alcohol, or drugs Family history of mother with palpitations, family history of cancer and diabetes EKG 80 beats per minute normal sinue rythm with incomplete right bundle branch block, troponin negative x 1 Vitals when examined by hospitalist, 96 bpm, blood pressure 154/101, breathing on room air and saturating above 95%. . Physical Exam (per Admitting): General Appearance: WD/WN, no apparent distress Head: normocephalic, atraumatic Eyes: normal inspection, EOMI, sclerae normal ENT: normal ENT inspection, hearing grossly normal, pharynx normal Neck: supple, thyroid normal, no JVD, no carotid bruits, trachea midline Respiratory/Chest: chest non-tender, lungs clear, normal breath sounds, no respiratory distress, no accessory muscle use Cardiovascular: regular rate, rhythm, no edema, no gallop, no JVD, no murmur , normal peripheral pulses Abdomen/GI: normal bowel sounds, non tender, soft Back: normal inspection, no CVA tenderness, no muscle spasm, normal range of motion Extremities/Musculoskelatal: normal inspection, no calf tenderness, normal capillary refill, no pedal edema, normal range of motion, non-tender Neurologic/Psych: no motor/sensory deficits, normal mood/affect, normal reflexes, oriented x 3 Skin: normal color, warm/dry, no rash Hospital Course CHEST PAIN Presented to ED with chest pain, not related to activity or eating. D-dimer normal, so pulmonary embolism very unlikely. Serial cardiac markers normal. No acute EKG changes. No ischemic changes during treadmill stress echo with adequate workload. CT of abdomen in 2013 demonstrated coronary calcifications. ASA 81 mg daily, lipid management, healthy lifestyle recommended. DYSLIPIDEMIA Lipid profile: Item Value Date Time Cholesterol Level 228 mg/dl H 03/04/17 06 LDL Cholesterol, Calculated 150 mg/dl 03/04/17642 VLDL Cholesterol, Calculated 42 mg/dl 03/04/17642 HDL Cholesterol 36 mg/dl 03/04/1743 Cholesterol/HDL Ratio 6.3 03/04/17 06 Triglycerides Level 211 mg/dl H 03/04/17 0643 Will start statin in light of coronary calcifications on previous CT scan. Atorvastatin 40 mg daily. ELEVATED BLOOD PRESSURES Blood pressures fluctuated with initial reading of 180/98 in ED. Subsequent blood pressures as low as 125/77 without any antihypertensive therapy. Follow. VTE PROPHYLAXIS Low risk. VTE prophylaxis not indicated. Ambulating. DISPOSITION Discharge to home. Family Medicine follow-up with Dr. Hernandez. . Total time spent on discharge = This includes examination of the patient, discharge planning, medication reconciliation, and communication with other providers. Discharge Instructions Date of Service Mar 04, 2017. Admission Reason for Admission: chest discomfort . Discharge Discharge Diagnosis / Problem: chest discomfort- no sign of heart attack Discharge Goals Goal(s): Improve disease control Activity Recommendations Activity Limitations: resume your previous activity . Instructions / Follow-Up Instructions / Follow-Up APPOINTMENTS: FAMILY MEDICINE 03/12/2017 12:40 PM Haris Hernandez MD [facility] OTHER INSTRUCTIONS: There was no sign of a heart attack. You did well with the stress test. This indicates that you don't have any severe blockage in the large coronary arteries. You probably have some hardening of the arteries as seen on CT scan in 2014. Cholesterol is a bit high. Best to lower it with medications and diet to reduce risk of heart attack and stroke in the future. Take atorvastatin (Lipitor) 40 mg daily. Possible side effects are muscle aches, muscle weakness, liver problems. Take aspirin 81 mg daily to help prevent heart attacks and strokes. Blood pressure was slightly high at times. Dr. Hernandez will follow your blood pressure in clinic and may recommend treatment if it remains high. Seek medical attention if you have: * chest pain, chest discomfort, or trouble breathing * abdominal pain, nausea, vomiting * diarrhea, dark stools or bloody stools * dark urine * unusual muscle aches or weakness * any unanswered questions or concerns Call 911 if symptoms are severe. Call if you have any questions or problems. My cell # is [phone]. You can also reach a [facility] hospitalist on duty at [facility] 24 hours a day by calling [phone]. Please take good care of yourself. Gutierrez Robledo . Current Hospital Diet Patient's current hospital diet: AHA Diet (Heart Healthy), Low Sodium Diet (2gm Na) Discharge Diet Recommended Diet: AHA Diet (Heart Healthy) Pending Studies Studies pending at discharge: no Laboratory Results Hemoglobin A1c Test 03/04/17 06:43 Range/Units Estimated Average Glucose 103 mg/dl Hemoglobin A1c 5.2 4.5-5.6 % Lipid Panel Test 03/04/17 06:43 Range/Units Triglycerides Level 211 H 0-150 mg/dl Cholesterol Level 228 H 0-200 mg/dl HDL Cholesterol 36 mg/dl Cholesterol/HDL Ratio 6.3 LDL Cholesterol, Calculated 150 mg/dl Medical Emergencies . Who to Call and When: Medical Emergencies: If at any time you feel your situation is an emergency, please call 911 immediately. . Non-Emergent Contact Non-Emergency issues call your: Primary Care Provider, Hospital Doctor . . "Provider Documentation" section prepared by Gutierrez Robledo. . VTE Core Measure Inpt VTE Proph given/why not?: SCD's .
== END 2017-03-04 12:58 | disposition home or self-care (01) ==
LOC: C.EDB 16:11 → C.2T 17:56 → ENRESERV 18:27 → C.2T 19:08 → UNDOADMOB 19:08
PROVIDERS: ADMIT Hospitalist; ATTEND Hospitalist
DX: R07.2 Precordial pain (principal); R03.0 Elevated blood-pressure reading, without diagnosis of hypertension; J45.909 Unspecified asthma, uncomplicated; Z82.49 Family history of ischemic heart disease and other diseases of the circulatory system; Z83.3 Family history of diabetes mellitus

== ENCOUNTER 2024-12-10 12:09 | Observation (INO) ==
--- NOTE | 2024-12-10 12:26 | Emergency Department Note ---
Impression & Plan Chest pain, Calcification of coronary artery, Hypertension, Stable angina ED Provider Note NAME: SY ALBARRAN AGE: 54 SEX: M : 1970 ARRIVES VIA: Walk-In INFORMANT: Patient, ED PROVIDER(S): Miguel Padilla DO CHIEF COMPLAINT: chest pain HPI: This is a 54-year-old male with the PMHx of hypertension, hyperlipidemia, asthma, coronary artery calcifications on CT scan presenting to [facility] for further evaluation of chest pain. Patient is accompanied by his who provide additional history. the patient has had chest pain over the last day or so. Describes left-sided chest pain that radiates into his left upper extremity. This started during exertional activities at work yesterday. Has continued throughout the day yesterday and then overnight into the morning. Patient states his pain is mildly improved but still has some sensation in his left upper extremity. Did radiate into his jaw. No associated symptoms. Does have positive family history for cardiovascular disease. Does have risk factors for cardiovascular disease including hypertension, hyperlipidemia and calcifications on CT scan. Patient has been previously evaluated by cardiology and had a normal stress echocardiogram. He states that his pain resolved after taking a baby aspirin this morning. Patient has normally had intermittent lower extremity swelling and noticed this was worse than usual. They deny fever or chills. No cough or congestion. Denies chest palpitations. No shortness of breath. They deny abdominal pain, nausea and vomiting. No urinary complaints. No recent changes in bowel movements. Patient denies recent changes in medications or OTC supplements. Patient offers no other complaints, today. ADDITIONAL HISTORY OBTAINED: Per HPI Chronic Medical/Social Conditions Affecting Care: Per HPI PAST MEDICAL HISTORY: See Below PAST SURGICAL HISTORY: See Below FAMILY HISTORY: See Below SOCIAL HISTORY: See Below HOME MEDICATIONS: See Below ALLERGIES: See Below VITALS: See Below PHYSICAL EXAMINATION: GENERAL: Sitting up in bed, alert, well appearing, well nourished, no distress, non-toxic EYE EXAM: normal conjunctiva. PERRL and EOM's grossly intact. OROPHARYNX: no exudate, no erythema, lips, buccal mucosa, and tongue normal and mucous membranes are moist NECK: supple, no nuchal rigidity, no adenopathy, non-tender LUNGS: Clear to auscultation. Normal chest wall mechanics HEART: no murmurs, regular rate, regular rhythm ABDOMEN: abdomen soft, non-tender, no masses, no rebound or guarding. BACK: Back is symmetrical on inspection and there is no deformity, no midline tenderness, no CVA tenderness. SKIN: no rashes and no bruising UPPER EXTREMITIES: upper extremities are grossly normal. LOWER EXTREMITIES: No pitting edema. NEURO EXAM: Normal sensorium, GCS 15, normal speech, no gross weakness of arms, no gross weakness of legs. MEDICAL DECISION MAKING: Differential diagnoses includes but not limited to ACS, stable vs unstable angina, dysrhythmia, viral URI, pneumonia, pericarditis, pneumothorax, costochondritis, MSK strain, PE, hypertensive emergency, psychological causes, esophageal reflux, gastritis In summary, this is a 54 year old male who presented with chest pain. Differential as above. Nursing notes and pertinent past medical records reviewed. Vital signs reviewed and the patient is hypertensive but otherwise afebrile and hemodynamically stable. History and presentation revealed multiple risk factors for ACS including hypertension, hyperlipidemia and coronary artery calcifications on CT. He is on blood pressure medications as well as a statin. Do feel the patient has significant family history as well. Patient's symptoms are concerning for possible angina today. Physical examination revealed as above. As a result of my initial evaluation, plan for evaluation with labs including 2 troponins. Plan for chest x-ray as well. Will load with aspirin. Do feel the patient will be moderate risk and should be observed in the hospital. Diagnostics interpreted by me include EKG and cardiac monitoring as listed below: -Cardiac Monitoring: An order was placed for continuous cardiac monitoring. The monitor shows a rate of 60-70s with regular rhythm. -ECG: EKG independently interpreted by me reveals normal sinus rhythm at a ventricular rate of [address] segment changes to suggest STEMI. Intervals are within normal limits. Patient completed laboratory studies and imaging. CXR independently interpreted by me reveals no evidence of focal consolidation to suggest pna. No large pneumothorax or pleural effusion. Results independently interpreted by me are no significant anemia or leukocytosis. Patient has normal kidney function and electrolytes. LFTs and lipase are within normal limits. Initial troponin is unremarkable. The patient was managed with close observation with telemetry as well as loading dose of aspirin. Given the patient's history as well as his comorbidities, I do think the patient is at moderate risk for ACS. Do believe with a CT that shows coronary artery calcifications and his symptoms that we should consider further workup for cardiovascular disease as an inpatient. Would recommend observation given his chest pain today. Patient was loaded with aspirin. He was not given anything for the pain while in the emergency department. HEART score of 4pts. Ultimately, the decision was made to admit the patient for high risk chest pain. I discussed the case with the hospitalist service via telephone/TigerText and they are agreeable to admit the patient to their services. Based on the above, including the patient's age, coexisting illnesses, labs, imaging, and exam findings the decision to treat as an inpatient. I discussed the patient with the hospitalist team who recommended admission to their services. They received the medications, treatments, interventions indicated above and their condition remained stable. I discussed my findings with the patient and their family and they understand and agree with the treatment plan. All patient / family questions were answered to their satisfaction. Consults/Care Managements Discussions: Per [facility] ER treatment provided: See above Procedures:none Critical Care: None The chart was completed utilizing [employer] Speech voice recognition software. Grammatical errors, random word insertions, pronoun errors, and incomplete sentences are an occasional consequence of this system due to software limitations, ambient noise, and hardware issues. Any formal questions or concerns about the content, text, or information contained within the body of this dictation should be directly addressed to the physician for clarification. Past Med/Surg History Problem List (Updated 12/10/24 @ 14:16 by Miguel Padilla DO) Stable angina (Acute) Hypertension (Acute) Calcification of coronary artery (Acute) Chest pain (Acute) Medical History CKD (chronic kidney disease) stage 3, GFR 30-59 ml/min Malignant melanoma Levator syndrome Dyslipidemia GERD without esophagitis Ureteral calculi Asthma allergic Cervical radiculopathy Coronary artery calcification seen on CT scan Hypertension Surgical History History of lymph node biopsy History of insertion of central venous access port placed 2018, removed 2020 History of melanoma excision Hx of colonoscopy Family History Father Liver cancer Mother Hypertension Other Diabetes Social History Smoking Status: Never smoker Second Hand Exposure: No; Do You Dip or Chew Tobacco: No; Hx Alcohol Use: No Hx Substance Use: No Preferred Language: Yoruba Communication Ability: Effective Lap Winder Required: No Beliefs That Will Affect Care: None Current Living Situation: Spouse Feels Safe at Home: Yes Assistive Devices: Glasses Allergies Allergies Allergy/AdvReac Type Severity Reaction Status Date / Time No Known Allergies Allergy Verified 07/06/20 14:38 Home Meds Home Medications Medication Instructions Recorded Confirmed atorvastatin 20 mg tablet 20 mg PO DAILY 07/13/18 12/10/24 losartan 25 mg tablet 25 mg PO DAILY 07/06/20 12/10/24 omeprazole 20 mg capsule,delayed 20 mg PO DAILY 12/10/24 12/10/24 release Results & Data (ED) Vital Signs Vital Signs - 24 hr 12/10/24 12:10 12/10/24 12:27 12/10/24 12:44 Temperature 36.6 C Temperature Source Temporal Artery Scan Pulse Rate 74 68 Pulse Rate [Apical] 79 Respiratory Rate 17 18 Respiratory Effort / Characteristics Non-Labored Spontaneous Non-Labored Spontaneous Respiratory Depth Normal Normal Blood Pressure 189/93 H Blood Pressure [Right Arm] 211/124 H Blood Pressure Mean 125 Blood Pressure Mean [Right Arm] 153 Blood Pressure Position [Right Arm] Lying Pulse Oximetry 97 96 Oxygen Delivery Method Room Air Room Air Sepsis Recent Fever Within 48 Hours No Sepsis New/Unexplained Change in Mental Status No Sepsis Action Taken by Nursing No Action Required 12/10/24 13:00 Temperature Temperature Source Pulse Rate Pulse Rate [Apical] 66 Respiratory Rate 20 Respiratory Effort / Characteristics Respiratory Depth Blood Pressure Blood Pressure [Right Arm] 164/101 H Blood Pressure Mean Blood Pressure Mean [Right Arm] 122 Blood Pressure Position [Right Arm] Semi-fowlers Pulse Oximetry 97 Oxygen Delivery Method Room Air Sepsis Recent Fever Within 48 Hours Sepsis New/Unexplained Change in Mental Status Sepsis Action Taken by Nursing Laboratory Data 12/10/24 12:22 12/10/24 12:22 Lab Results 12/10/24 Range/Units 12:22 WBC 6.34 (4.8-10.8) K/ul RBC 4.81 (4.70-6.10) M/uL Hgb 14.9 (14.0-18.0) g/dl Hct 41.4 L (42.0-52.0) % MCV 86.1 (80.0-100.0) fL MCH 31.0 (25.0-34.0) pg MCHC 36.0 (32.0-36.0) g/dL RDW Std Deviation 39.2 (36.4-46.3) fL RDW Coeff of Rose Marie 12.5 (11.5-14.5) % Plt Count 244 (130-400) K/uL MPV 9.0 L (9.4-12.4) fL Immature Gran % (Auto) 0.6 % Neut % (Auto) 57.5 % Lymph % (Auto) 28.2 % Cuming % (Auto) 9.8 % Eos % (Auto) 2.8 % Baso % (Auto) 1.1 % Neut # (Auto) 3.64 (1.40-6.50) K/uL Lymph # (Auto) 1.79 (1.20-3.40) K/uL Cuming # (Auto) 0.62 H (0.11-0.59) K/uL Eos # (Auto) 0.18 (0.00-0.50) K/uL Baso # (Auto) 0.07 (0.00-0.20) K/uL Immature Gran # (Auto) 0.04 (0.01-0.20) K/uL Sodium 138 (136-145) mmol/L Potassium 4.4 (3.5-5.1) mmol/L Chloride 104 (98-107) mmol/L Carbon Dioxide 30 (21-32) mmol/L Anion Gap 4 (3-11) BUN 15 (6-23) mg/dl Creatinine 1.25 (0.6-1.4) mg/dl Est Cr Clr Drug Dosing 85.0 ml/min eGFR 68.43 BUN/Creatinine Ratio 12.0 (10-20) Glucose 95 (70-99(Fasting)) mg/dl Calcium 9.4 (8.6-10.3) mg/dl Total Bilirubin 0.7 (0.2-1.0) mg/dl AST 20 (13-39) U/L ALT 31 (7-52) U/L Alkaline Phosphatase 69 (34-104) U/L Troponin I High Sens 3.3 (0-20) pg/ml Total Protein 7.4 (6.0-8.3) gm/dl Albumin 3.9 (3.4-5.0) gm/dl Globulin 3.5 (2.5-4.0) gm/dl Albumin/Globulin Ratio 1.1 (0.9-2) Lipase 45 (11-82) U/L Administered Medications Discontinued Medications Aspirin (Aspirin Chew 324 Mg) 243 mg PO NOW STA Stop: 12/10/24 13:06 Last Admin: 12/10/24 13:10 Dose: 243 mg Documented By: amg Imaging Data Radiologist's Impression: Chest X-Ray 12/10/24 12:19 Clinical History: Chest pain Technique: 2 frontal views of the chest were obtained Comparison is made to the prior examination dated 07/06/2020 Findings: There are no confluent pulmonary infiltrates. The heart size is within normal limits. No pleural effusion or pneumothorax is seen. There is no definite pulmonary nodule. No fracture is noted. No foreign body is seen Impression: No active disease Electronically signed by Maciej Hui 12-10-2024 12:42 PM Discharge Plan Visit Data Chief Complaint: Cardiac Assessment Stated Complaint: CHEST PAIN ED Provider: Miguel Padilla Discharge Problem: Chest pain, Calcification of coronary artery, Hypertension, Stable angina Patient Disposition: Admitted As Inpatient Condition: Fair Forms Stand Alone Forms: My [id number] Prescriptions Prescriptions: No Action atorvastatin 20 mg tablet 20 mg PO DAILY losartan 25 mg tablet 25 mg PO DAILY omeprazole 20 mg capsule,delayed release(DR/EC) 20 mg PO DAILY Referrals Referrals: Haris Hernandez MD [Primary Care Provider] -
[2024-12-10 12:39] LABS: Hematocrit (blood only) 41.4 % (42.0-52.0); Hemoglobin 14.9 g/dl (14.0-18.0); Immature Granulocytes # (auto) 0.04 K/uL (0.01-0.20); Immature Granulocytes % (auto) 0.6 %; Mean Corpuscular Hemoglobin 31.0 pg (25.0-34.0); Mean Corpuscular Volume 86.1 fL (80.0-100.0); Platelet Count 244 K/uL (130-400); RDW Standard Deviation 39.2 fL (36.4-46.3); Red Blood Count 4.81 M/uL (4.70-6.10); White Blood Count 6.34 K/ul (4.8-10.8)
--- NOTE | 2024-12-10 12:42 | XRay Report ---
Clinical History: Chest pain Technique: 2 frontal views of the chest were obtained Comparison is made to the prior examination dated 07/06/2020 Findings: There are no confluent pulmonary infiltrates. The heart size is within normal limits. No pleural effusion or pneumothorax is seen. There is no definite pulmonary nodule. No fracture is noted. No foreign body is seen Impression: No active disease Electronically signed by Maciej Hui 12-10-2024 12:42 PM
[2024-12-10 12:56] LABS: Alanine Aminotransferase 31.0 U/L (7-52); Albumin Globulin Ratio 1.1 (0.9-2); Alkaline Phosphatase 69.0 U/L (34-104); Anion Gap 4.0 (3-11); Bilirubin,Total 0.7 mg/dl (0.2-1.0); Blood Urea Nitrogen 15.0 mg/dl (6-23); Calcium 9.4 mg/dl (8.6-10.3); Carbon Dioxide 30.0 mmol/L (21-32); Chloride 104.0 mmol/L (98-107); Creatinine Clr Calc Pharmacy 85.0 ml/min; Globulin 3.5 gm/dl (2.5-4.0); Glucose 95.0 mg/dl (70-99(Fasting)); Lipase 45.0 U/L (11-82); Potassium 4.4 mmol/L (3.5-5.1); Sodium 138.0 mmol/L (136-145); Total Protein 7.4 gm/dl (6.0-8.3)
[2024-12-10] MEDS: ASPIRIN CHEW 324 MG PO STA (13:10)
--- NOTE | 2024-12-10 13:48 | History & Physical Report ---
Date of Service December 10, 2024 Assessment & Plan (1) Chest pain: (2) Hypertension: (3) Coronary artery calcification seen on CT scan: (4) Dyslipidemia: (5) GERD without esophagitis: (6) CKD (chronic kidney disease) stage 3, GFR 30-59 ml/min: Plan This is a 54 y/o male with HTN, dyslipidemia, CKD3, prior malignant melanoma s/p excision and Keytruda, GERD, and other history as outlined below who presented to the ED today with left chest pain for the last 2-3 days. Pain worsened/more constant over the last 24-36 hours, though currently essentially resolved. Initial troponin negative, EKG personally reviewed and without significant ST changes. Referred for observation overnight to trend cardiac enzymes, monitory on telemetry due to multiple risk factors for cardiac disease including HTN, dyslipidemia, and obesity, as well as known prior coronary calcifications. #Chest pain - currently improved, seems more consistent with MSK etiology but in view of multiple risk factors for cardiac disease, will need to rule out cardiac etiology - Monitor on med telemetry overnight - Trend troponin Q 6hours x 2 more draws - Repeat EKG in the AM - Update ECHO - Consult cardiology for additional recommendations - Lipid panel, A1c in the AM #Hypertension - Continue losartan 100 mg daily and monitor #Dyslipidemia - Chronic, continue statin - Lipid panel in the AM #CKD3 - Chronic, stable - creatinine at baseline #GERD - Chronic, stable - no symptoms presently - Continue PPI for now Pt seen and reviewed with collaborating physician, Dr. Barragan. Plan of care discussed and as outlined above. Pt's at the bedside and was updated - all questions answered Code status: full code per my discussion with pt and his DVT prophylaxis: Jackie Kunz PA-C History of Present Illness Chief Complaint: chest pain Primary Care Provider: Haris Hernandez MD This is a 54 y/o male with HTN, dyslipidemia, CKD3, prior malignant melanoma s/p excision and Keytruda, GERD, and other history as outlined below who presented to the ED today with left chest pain for the last 2-3 days. Pt reports initially developed some intermittent chest discomfort three nights ago. Yesterday, pain became more constant and started to radiate from left chest to left neck and shoulder. Pain is described as "like a pulled muscle" and was constant from two nights ago to around 9 am today. Pain is mostly resolved at presented, has some mild residual in left shoulder. Pain is worse with certain movements, specifically lifting his left arm. 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 Pt notes going to the chiropractor due to lower back pain right before this pain started. Denies neck pain but notes that chiropractor cracked his neck that day as well. He reports similar pain in 2018 when he was admitted for chest pain rule out. However, he has not really noticed the pain since that admission until this current episode. He had a negative stress echo in 2017, has not followed with cardiology outpatient. He was noted to have coronary calcifications on prior chest CT so cardiology recommended pt be on a statin. Pt denies tobacco or alcohol. He does consume large amounts of Mountain Dew soda. His mother was noted to have palpitations but denies history of premature CAD or known TX. Stress Echo 03/03/17 - normal exercise stress echo, noted to have borderline concentric LVH, LVEF 60-65% Allergies Allergy/AdvReac Type Severity Reaction Status Date / Time No Known Allergies Allergy Verified 07/06/20 14:38 Home Medications Medication Instructions Recorded Confirmed Type atorvastatin 20 mg tablet 20 mg PO QPM 07/13/18 12/10/24 History losartan 100 mg tablet 100 mg PO QPM 12/10/24 12/10/24 History omeprazole 20 mg capsule,delayed 20 mg PO DAILY 12/10/24 12/10/24 History release Past Med/Surg History Problem List (Updated 12/10/24 @ 15:30 by Mami Kunz PA-C) Stable angina (Acute) Hypertension (Acute) Calcification of coronary artery (Acute) Chest pain (Acute) Medical History CKD (chronic kidney disease) stage 3, GFR 30-59 ml/min Malignant melanoma Levator syndrome Dyslipidemia GERD without esophagitis Ureteral calculi Asthma allergic Cervical radiculopathy Coronary artery calcification seen on CT scan Hypertension Surgical History History of lymph node biopsy History of insertion of central venous access port placed 2018, removed 2020 History of melanoma excision Hx of colonoscopy Family History Father Liver cancer Mother Hypertension Other Diabetes Social History Smoking Status: Never smoker Second Hand Exposure: No; Do You Dip or Chew Tobacco: No; Hx Alcohol Use: No Hx Substance Use: No Preferred Language: Yakut Communication Ability: Effective Dealer Card Room Required: No Beliefs That Will Affect Care: None Current Living Situation: Spouse Current Living Situation Comment: single level home Other Information That Helps Us Care for You: No Feels Safe at Home: Yes Safety Concerns: Feels Safe At This Time Assistive Devices: Glasses Review of Systems Review of Systems: All systems reviewed & are unremarkable except as noted in Subjective Physical Exam Physical Exam: General: awake, alert, NAD HEENT: no scleral icterus, moist oral mucosa Neck: supple, trachea midline, no spinous process tenderness Heart: RRR, no M/G/R, no chest wall tenderness Lungs: CTA bilaterally, no W/R/R Abdomen: soft, NT, +BS Extremities: no significant pedal edema, distal pulses intact and equal MSK: left shoulder non-tender, mild pain in left shoulder with flexion/extension against resistance Skin: warm, dry, no jaundice or rashes Neurologic: Ox3, no confusion or dysarthria, moving all extremities without focal deficit noted Results & Data Results & Data Vital Signs (Past 12 Hours) Vital Signs Temp Pulse Pulse Resp BP BP Pulse Ox 12/10/24 13:00 66 20 164/101 H 97 12/10/24 12:44 68 12/10/24 12:27 79 18 211/124 H 96 12/10/24 12:10 36.6 C 74 17 189/93 H 97 O2 Del Method 12/10/24 13:00 Room Air 12/10/24 12:44 12/10/24 12:27 Room Air 12/10/24 12:10 Room Air Laboratory Results Lab Results 12/10/24 Range/Units 12:22 WBC 6.34 (4.8-10.8) K/ul RBC 4.81 (4.70-6.10) M/uL Hgb 14.9 (14.0-18.0) g/dl Hct 41.4 L (42.0-52.0) % MCV 86.1 (80.0-100.0) fL MCH 31.0 (25.0-34.0) pg MCHC 36.0 (32.0-36.0) g/dL RDW Std Deviation 39.2 (36.4-46.3) fL RDW Coeff of [place] 12.5 (11.5-14.5) % Plt Count 244 (130-400) K/uL MPV 9.0 L (9.4-12.4) fL Immature Gran % (Auto) 0.6 % Neut % (Auto) 57.5 % Lymph % (Auto) 28.2 % [place] % (Auto) 9.8 % Eos % (Auto) 2.8 % Baso % (Auto) 1.1 % Neut # (Auto) 3.64 (1.40-6.50) K/uL Lymph # (Auto) 1.79 (1.20-3.40) K/uL [place] # (Auto) 0.62 H (0.11-0.59) K/uL Eos # (Auto) 0.18 (0.00-0.50) K/uL Baso # (Auto) 0.07 (0.00-0.20) K/uL Immature Gran # (Auto) 0.04 (0.01-0.20) K/uL Sodium 138 (136-145) mmol/L Potassium 4.4 (3.5-5.1) mmol/L Chloride 104 (98-107) mmol/L Carbon Dioxide 30 (21-32) mmol/L Anion Gap 4 (3-11) BUN 15 (6-23) mg/dl Creatinine 1.25 (0.6-1.4) mg/dl Est Cr Clr Drug Dosing 85.0 ml/min eGFR 68.43 BUN/Creatinine Ratio 12.0 (10-20) Glucose 95 (70-99(Fasting)) mg/dl Calcium 9.4 (8.6-10.3) mg/dl Total Bilirubin 0.7 (0.2-1.0) mg/dl AST 20 (13-39) U/L ALT 31 (7-52) U/L Alkaline Phosphatase 69 (34-104) U/L Troponin I High Sens 3.3 (0-20) pg/ml Total Protein 7.4 (6.0-8.3) gm/dl Albumin 3.9 (3.4-5.0) gm/dl Globulin 3.5 (2.5-4.0) gm/dl Albumin/Globulin Ratio 1.1 (0.9-2) Lipase 45 (11-82) U/L Diagnostic Findings Chest X-Ray 12/10/24 12:19 Clinical History: Chest pain Technique: 2 frontal views of the chest were obtained Comparison is made to the prior examination dated 07/06/2020 Findings: There are no confluent pulmonary infiltrates. The heart size is within normal limits. No pleural effusion or pneumothorax is seen. There is no definite pulmonary nodule. No fracture is noted. No foreign body is seen Impression: No active disease Electronically signed by Maciej Hui 12-10-2024 12:42 PM Medications Administered Discontinued Medications Aspirin (Aspirin Chew 324 Mg) 243 mg PO NOW STA Stop: 12/10/24 13:06 Last Admin: 12/10/24 13:10 Dose: 243 mg Documented By: reji Supervising Physician Co-Signing Physician Notes Patient seen and examined independently. Discussed with above provider. Patient presented to the hospital with left-sided chest pain for last 2 to 3 days. EKG shows normal sinus rhythm; no ST or T wave changes. High sensitive troponin is negative. Plan to continue on Lipitor. Update echocardiogram. Consult cardiology for possible stress test. I have reviewed the advanced practitioner's documentation, and I agree with, and take responsibility for the plan of care I spent a total of 20 minutes coordinating, documenting, and providing care for this patient excluding time spent in the performance of separately billed services. All of the aforementioned completed while collaborating with the assigned advanced practitioner for a full treatment plan (1) Chest pain Chest pain type: unspecified Qualified Code(s): R07.9 - Chest pain, unspecified (2) Hypertension Hypertension type: unspecified Qualified Code(s): I10 - Essential (primary) hypertension (6) CKD (chronic kidney disease) stage 3, GFR 30-59 ml/min Chronic kidney disease stage 3 subtype: unspecified whether 3a or 3b Qualified Code(s): N18.30 - Chronic kidney disease, stage 3 unspecified
[2024-12-10] MEDS ORDERED: ACETAMINOPHEN 325 MG TAB PO PRN (15:59)
[2024-12-10] MEDS: LOSARTAN POTASSIUM 50 MG TAB PO SCH (20:30)
[2024-12-10] MEDS: ATORVASTATIN 20 MG TAB PO SCH (20:30)
[2024-12-11 06:45] LABS: Hematocrit (blood only) 43.0 % (42.0-52.0); Hemoglobin 15.5 g/dl (14.0-18.0); Immature Granulocytes # (auto) 0.02 K/uL (0.01-0.20); Immature Granulocytes % (auto) 0.3 %; Mean Corpuscular Hemoglobin 30.9 pg (25.0-34.0); Mean Corpuscular Volume 85.7 fL (80.0-100.0); Platelet Count 238 K/uL (130-400); RDW Standard Deviation 38.8 fL (36.4-46.3); Red Blood Count 5.02 M/uL (4.70-6.10); White Blood Count 6.84 K/ul (4.8-10.8)
[2024-12-11 07:20] LABS: Anion Gap 4.0 (3-11); Blood Urea Nitrogen 14.0 mg/dl (6-23); Calcium 9.5 mg/dl (8.6-10.3); Carbon Dioxide 29.0 mmol/L (21-32); Chloride 105.0 mmol/L (98-107); Cholesterol 165.0 mg/dl (0-200); Creatinine Clr Calc Pharmacy 86.4 ml/min; Glucose 102.0 mg/dl (70-99(Fasting)); HDL Cholesterol 36.0 mg/dl; Potassium 4.4 mmol/L (3.5-5.1); Sodium 138.0 mmol/L (136-145); Triglycerides 190.0 mg/dl (0-150)
[2024-12-11 07:36] LABS: Hemoglobin A1C 5.3 % (4.5-5.6)
[2024-12-11 08:04] VITALS: RESP 18
--- NOTE | 2024-12-11 09:23 | XCELERA ---
[id number]
[2024-12-11] MEDS: ENOXAPARIN INJ 40 MG/0.4 ML SYR SQ SCH (09:30)
--- NOTE | 2024-12-11 10:22 | Cardiology Consultation ---
Date of Consultation December 11, 2024 Assessment & Plan (1) Chest pain at rest: (2) Dyslipidemia, goal LDL below 70: (3) Calcification of coronary artery: (4) Hypertension: Plan Chest pain. Atypical. EKG without acute change. High-sensitivity troponin negative x 3 (3.3 -> 3.5 -> 3.9 pg/mL). Resting echocardiography with preserved LV systolic function, without regional wall motion abnormalities. Chest x-ray without active disease. Prior imaging with advanced coronary artery atherosclerosis. Risk factors include hypertension, dyslipidemia, family history. Options of management discussed. Noting holiday weekend including Thursday being Labor Day, patient prefers discharge and outpatient referral for exercise stress echocardiography which seems quite reasonable, also allowing time for additional blood pressure control. Coronary artery calcification. Add aspirin 81 mg/day. Continue statin, dosing of atorvastatin increased as below. Hypertension. Uncontrolled. Blood pressure on initial presentation was as high as 211/124. ? Hypertensive urgency. Echo suggestive of impaired LV relaxation. Continue Losartan 100 mg/day. Add carvedilol 3.125 mg twice a day. Suspect patient may also require the addition of low dose thiazide diuretic. Dyslipidemia. LDL cholesterol goal less than 70 mg/dL. LDL cholesterol 91 mg/dL. Recommend titration of atorvastatin to 40 mg/day. Supervising Physician Co-Signing Physician Notes Patient seen and examined. Past medical history, surgical history, social history and family history have been reviewed. The medical record and all the above studies have been reviewed. Case DW SHENA including management. Chest pain - [place] R/O, atypical, likely musculoskeletal HTN - uncontrolled HLD Coronary calcification on CT scan CKD add betablockers ASA 81mg po daily statin adjust anti-HTN meds keeping systolic BP between 100-140 mmHg avoid hypovolemia keep patient euvolemic DVT prophylaxis as per hospitalist salt restriction further cardiac w/u as outpatient as indicated f/u in cardiology office post discharge stable from cardiology standpoint for discharge History of Present Illness Reason for Consultation: Chest pain Requesting Physician: [facility], Mami Kunz PA-C Attending Physician: [facility], Dr. Jorge Peterson MD History of Present Illness Patient is a very pleasant 54-year-old male patient who was in his usual state of health until Thursday, December 07, 2024 at which time patient started to have some discomfort in the back. He notes going to the chiropractor that night with perceived benefit. Thursday he began to experience some tension around the left side of the chest, left shoulder, left arm. He notes feeling strongly that it was a pulled muscle. The discomfort was constant all day Thursday though did wax and wane some. Discomfort seemed to be worse with certain movements such as lifting the arm and turning the neck. Due to ongoing discomfort Thursday morning patient called his PCPs office for an appointment and was advised to report to the emergency room for further evaluation and treatment. As the day progressed on Thursday the patient's discomfort improved. EKG on presentation without acute change. High-sensitivity troponin negative x 3. Resting echocardiography with preserved LV systolic function, without regional wall motion abnormalities. Chest x-ray without acute findings. Blood pressure was significantly elevated on presentation at 211/124. Patient compliant with medications prior to arrival. Prior to this event patient was relatively active at work and home, without activity related cardiopulmonary symptoms. No new or worsening shortness of breath. No palpitations. Mild lower extremity peripheral edema noted i ntermittently at the end of the day, resolving overnight. No orthopnea or PND. No dizziness or syncope. No fevers or chills. No melena or hematochezia. Past Medical and Surgical History Malignant melanoma on the upper back, status post excision, course of therapy with Keytruda ending in 2019 Coronary artery calcification Hypertension Dyslipidemia Chronic kidney disease GERD Kidney stones Family History: Positive for CAD in mother, details unknown. Father in 2017 with liver cancer. Estranged from sister. Social History: No cigarettes. Quit chewing 15 years ago. No alcohol. No illegal/illicit drug use. Employment: [employer]. . Two children, boys, two granddaughters. Allergies Allergy/AdvReac Type Severity Reaction Status Date / Time No Known Allergies Allergy Verified 07/06/20 14:38 Home Medications Medication Instructions Recorded Confirmed Type atorvastatin 20 mg tablet 20 mg PO QPM 07/13/18 12/10/24 History losartan 100 mg tablet 100 mg PO QPM 12/10/24 12/10/24 History omeprazole 20 mg capsule,delayed 20 mg PO DAILY 12/10/24 12/10/24 History release Patient History Medical History CKD (chronic kidney disease) stage 3, GFR 30-59 ml/min Malignant melanoma Levator syndrome Dyslipidemia GERD without esophagitis Ureteral calculi Asthma allergic Cervical radiculopathy Coronary artery calcification seen on CT scan Hypertension Surgical History History of lymph node biopsy History of insertion of central venous access port placed 2018, removed 2020 History of melanoma excision Hx of colonoscopy Family History Father Liver cancer Mother Hypertension Other Diabetes Social History Smoking Status: Never smoker Second Hand Exposure: No; Do You Dip or Chew Tobacco: No; Hx Alcohol Use: No Hx Substance Use: No Preferred Language: Cymro Communication Ability: Effective Client Partner Required: No Beliefs That Will Affect Care: None Current Living Situation: Spouse Current Living Situation Comment: single level home Other Information That Helps Us Care for You: No Feels Safe at Home: Yes Safety Concerns: Feels Safe At This Time Assistive Devices: Glasses Review of Systems Review of Systems: Complete Review of Systems is as stated above, negative, or noncontributory Physical Exam Physical Exam: General: A&Ox3. NAD. HENT: Normocephalic. Atraumatic. Eyes: PER. Conjunctiva pink, sclera clear. Neck: No carotid bruits. No JVD. Heart: RRR. No murmur. Lungs: Clear to auscultation. Abdomen: +BS. No overt organomegaly. Extremities: Mild edema. Limited neurological examination is without focal deficits. Pulses: Posterior tibial=2/4. Results & Data Vital Signs (Past 12 Hours) Vital Signs Temp Pulse Pulse Pulse Resp BP Pulse Ox 12/11/24 10:11 60 12/11/24 08:03 36.5 C 70 18 156/89 H 97 12/11/24 03:32 36.5 C 57 L 16 145/84 H 96 O2 Del Method 12/11/24 10:11 12/11/24 08:03 Room Air 12/11/24 03:32 Room Air Laboratory Results Cardiac Enzymes 12/10/24 12/10/24 12/11/24 Range/Units 12:22 19:08 00:15 AST 20 (13-39) U/L Troponin I High Sens 3.3 3.5 3.9 (0-20) pg/ml Lipids 12/11/24 Range/Units 06:31 Triglycerides 190 H (0-150) mg/dl Cholesterol 165 (0-200) mg/dl HDL Cholesterol 36 mg/dl Cholesterol/HDL Ratio 4.6 (0-5) CBC 12/10/24 12/11/24 Range/Units 12:22 06:31 WBC 6.34 6.84 (4.8-10.8) K/ul RBC 4.81 5.02 (4.70-6.10) M/uL Hgb 14.9 15.5 (14.0-18.0) g/dl Hct 41.4 L 43.0 (42.0-52.0) % Plt Count 244 238 (130-400) K/uL Neut # (Auto) 3.64 4.43 (1.40-6.50) K/uL Lymph # (Auto) 1.79 1.66 (1.20-3.40) K/uL [place] # (Auto) 0.62 H 0.50 (0.11-0.59) K/uL Eos # (Auto) 0.18 0.17 (0.00-0.50) K/uL Baso # (Auto) 0.07 0.06 (0.00-0.20) K/uL Comprehensive Metabolic Panel 12/10/24 12/11/24 Range/Units 12:22 06:31 Sodium 138 138 (136-145) mmol/L Potassium 4.4 4.4 (3.5-5.1) mmol/L Chloride 104 105 (98-107) mmol/L Carbon Dioxide 30 29 (21-32) mmol/L BUN 15 14 (6-23) mg/dl Creatinine 1.25 1.22 (0.6-1.4) mg/dl Glucose 95 102 H (70-99(Fasting)) mg/dl Calcium 9.4 9.5 (8.6-10.3) mg/dl AST 20 (13-39) U/L ALT 31 (7-52) U/L Alkaline Phosphatase 69 (34-104) U/L Total Protein 7.4 (6.0-8.3) gm/dl Albumin 3.9 (3.4-5.0) gm/dl Intake and Output 12/10/24 12/11/24 12/11/24 22:59 06:59 14:59 Intake Total 480 / 580 100 / 580 Balance 480 / 580 100 / 580 Intake: Oral 480 / 580 100 / 580 Other: Weight 112.7 kg 111.2 kg Weight Measurement Method Standing Scale Diagnostic Findings Initial EKG revealed normal sinus rhythm at [address] segment change. EKG this morning reveals normal sinus rhythm at 72 bpm, without acute ST segment change. Telemetry: Sinus rhythm throughout, currently 70 bpm. December 10, 2024 TTE: Normal left ventricular systolic function. LVEF 55 to 60%. The transmitral spectral Doppler flow pattern is suggestive of impaired LV relaxation. Mild aortic regurgitation. Mild mitral and tricuspid regurgitation. PG Care Time/CCT Total # of Minutes Spent Total Time Spent with Patient: Total time spent is greater than 50% in coordination of care (as documented) at patient's floor/unit and/or counseling patient. I spent a total of 70 minutes on the date of service in preparation, delivery, and documentation of the care provided to this patient excluding any time spent in the performance of separately billed services. This visit was a split-shared visit with the substantive portion of the medical decision making performed by the supervising assembler bonding/billing provider, Dr. Soriano Coding Level of Care Code 47328 IN/OBS CONSULT LVL 5,80M Diagnoses Chest pain at rest R07.9 Dyslipidemia, goal LDL below 70 E78.5 Calcification of coronary artery I25.10 Hypertension, unspecified type I10 Hypertension type: unspecified (4) Hypertension Hypertension type: unspecified Qualified Code(s): I10 - Essential (primary) hypertension
--- NOTE | 2024-12-11 11:26 | Hospitalist Progress Note ---
Date of Service December 11, 2024 Assessment & Plan (1) Chest pain: (2) Hypertension: (3) Coronary artery calcification seen on CT scan: (4) Dyslipidemia: (5) GERD without esophagitis: (6) CKD (chronic kidney disease) stage 3, GFR 30-59 ml/min: Plan This is a 54 y/o male with HTN, dyslipidemia, CKD3, prior malignant melanoma s/p excision and Keytruda, GERD, and other history as outlined below who presented to the ED today with left chest pain for the last 2-3 days. Pain worsened/more constant over the last 24-36 hours, though currently essentially resolved. Initial troponin negative, EKG personally reviewed and without significant ST changes. Referred for observation overnight to trend cardiac enzymes, monitory on telemetry due to multiple risk factors for cardiac disease including HTN, dyslipidemia, and obesity, as well as known prior coronary calcifications. #Chest pain - currently improved, seems more consistent with MSK etiology but in view of multiple risk factors for cardiac disease, will need to rule out cardiac etiology - Monitor on med telemetry overnight - Serial troponins remain unremarkable - Repeat EKG in the AM-did not show any acute ST-T wave changes - Update ECHO showed-normal LV function with EF 55 to 60%, impaired LV relaxation, mild aortic regurgitation, there is mild mitral regurgitation, and there is mild tricuspid regurgitation - Appreciate cardiology input and recommendationWill start small dose of Coreg 3.125 mg twice daily and also small dose of thiazide diuretic and outpatient stress testing - Lipid profile noted with triglyceride 190 and hemoglobin A1c 5.3 #Hypertension - Continue losartan 100 mg daily and monitor -Small dose of Coreg has been added and also small dose of thiazide diuretics #Dyslipidemia - Chronic, continue statin - Lipid panel in the AM-triglyceride elevated at 190 advised to lose weight #CKD3 - Chronic, stable - creatinine at baseline #GERD - Chronic, stable - no symptoms presently - Continue PPI for now Code status: full code per my discussion with pt and his DVT prophylaxis: Lovenox Discharged home this afternoon the blood pressure is maintained Admission and Anticipated Discharge Date Admission Date: December 10, 2024 Subjective 12/11/2024 The patient was seen and examined in medical telemetry unit He has been stable does not have any chest pain and no palpitation His blood pressure remains mildly elevated at 156/89 He will be discharged home this afternoon if blood pressure is stable Review of Systems Review of Systems: All systems reviewed and are unremarkable except as noted below Physical Exam Physical Exam: Lying in bed without any acute distress Constitutional: well developed, well nourished and + obese; not ill appearing Eyes: PERRL, conjunctivae normal, anicteric sclerae ENMT: external ear and nose normal, oropharynx normal Neck: trachea midline, no thyromegaly Respiratory: no respiratory distress Auscultation: lungs clear to auscultation bilaterally Cardiovascular: Rate/Rhythm: regular rate and regular rhythm; not tachycardic Heart Sounds: normal S1 and normal S2; no murmur Extremities: + edema (Trace edema bilaterally) Gastrointestinal (Abdomen): Inspection/Auscultation: normal bowel sounds; abdomen not distended Percussion/Palpation: abdomen soft; abdomen nontender Musculoskeletal: No acute arthritis involving any of the joint Neurologic: normal touch/pain/proprioception and moves all extremities; no focal motor deficits Psychiatric: A+Ox3, euthymic affect Lymphatic: no cervical or axillary lymphadenopathy Results & Data Results & Data Vital Signs (Past 12 Hours) Vital Signs Temp Pulse Pulse Pulse Resp BP Pulse Ox 12/11/24 10:11 60 12/11/24 08:03 36.5 C 70 18 156/89 H 97 12/11/24 03:32 36.5 C 57 L 16 145/84 H 96 O2 Del Method 12/11/24 10:11 12/11/24 08:03 Room Air 12/11/24 03:32 Room Air Laboratory Results Short CBC 12/10/24 12/11/24 Range/Units 12:22 06:31 WBC 6.34 6.84 (4.8-10.8) K/ul Hgb 14.9 15.5 (14.0-18.0) g/dl Hct 41.4 L 43.0 (42.0-52.0) % Plt Count 244 238 (130-400) K/uL BMP 12/10/24 12/11/24 12:22 06:31 Sodium 138 138 Potassium 4.4 4.4 Chloride 104 105 Carbon Dioxide 30 29 BUN 15 14 Creatinine 1.25 1.22 Glucose 95 102 H Calcium 9.4 9.5 Liver Function 12/10/24 Range/Units 12:22 Total Bilirubin 0.7 (0.2-1.0) mg/dl AST 20 (13-39) U/L ALT 31 (7-52) U/L Alkaline Phosphatase 69 (34-104) U/L Albumin 3.9 (3.4-5.0) gm/dl Medications Administered Current Inpatient Medications Acetaminophen (Acetaminophen 325 Mg Tab) 650 mg PO Q4H PRN PRN Reason: Pain or Fever Stop: 01/09/25 15:58 Atorvastatin Calcium (Atorvastatin 20 Mg Tab) 20 mg PO QPM AMY Stop: 01/09/25 20:59 Last Admin: 12/10/24 20:30 Dose: 20 mg Carvedilol (Carvedilol 3.125 Mg Tab) 3.125 mg PO BIDM AMY Stop: 01/10/25 16:59 Carvedilol (Carvedilol 3.125 Mg Tab) 3.125 mg PO NOW ONE Stop: 12/11/24 11:20 Enoxaparin Sodium (Enoxaparin Inj 40 Mg/0.4 Ml Syr) 40 mg SQ QAM [facility] Stop: 01/10/25 08:59 Last Admin: 12/11/24 09:30 Dose: 40 mg Hydrochlorothiazide (Hydrochlorothiazide 25 Mg Tab) 12.5 mg PO QAM AMY Stop: 01/10/25 11:29 Losartan Potassium (Losartan Potassium 50 Mg Tab) 100 mg PO QPM AMY Stop: 01/09/25 20:59 Last Admin: 12/10/24 20:30 Dose: 100 mg Pantoprazole Sodium (Pantoprazole 40 Mg Tab) 40 mg PO DAILY AMY Stop: 01/10/25 08:59 Last Admin: 12/11/24 09:30 Dose: 40 mg (1) Chest pain Chest pain type: unspecified Qualified Code(s): R07.9 - Chest pain, unspecified (2) Hypertension Hypertension type: unspecified Qualified Code(s): I10 - Essential (primary) hypertension (6) CKD (chronic kidney disease) stage 3, GFR 30-59 ml/min Chronic kidney disease stage 3 subtype: unspecified whether 3a or 3b Qu alified Code(s): N18.30 - Chronic kidney disease, stage 3 unspecified
[2024-12-11 11:50] VITALS: TEMP 98.1
--- NOTE | 2024-12-11 12:04 | Electrocardiogram Report ---
Test Reason : Blood Pressure : */* mmHG Vent. Rate : 72 BPM Atrial Rate : 72 BPM P-R Int : 164 ms QRS Dur : 96 ms QT Int : 382 ms P-R-T Axes : 30 58 42 degrees QTcB Int : 418 ms Normal sinus rhythm Normal ECG When compared with ECG of 10-Dec-2024 13:22, (unconfirmed) Criteria for Inferior infarct are no longer Present T wave inversion no longer evident in Inferior leads Confirmed by Kanu Brizuela ([id number]) on 12/11/2024 12:03:32 PM Referred By: REFERRED SELF Confirmed By: Kanu Brizuela
--- NOTE | 2024-12-11 12:06 | Electrocardiogram Report ---
Test Reason : Blood Pressure : */* mmHG Vent. Rate : 72 BPM Atrial Rate : 72 BPM P-R Int : 156 ms QRS Dur : 96 ms QT Int : 366 ms P-R-T Axes : -5 -9 -11 degrees QTcB Int : 400 ms Normal sinus rhythm possible Inferior infarct , age undetermined Abnormal ECG When compared with ECG of 06-Jul-2020 15:11, Vent. rate has decreased by 48 bpm Confirmed by Kanu Brizuela ([id number]) on 12/11/2024 12:05:56 PM Referred By: REFERRED SELF Confirmed By: Kanu Brizuela
[2024-12-11] MEDS: hydroCHLOROthiazide 25 MG TAB PO SCH (12:07)
--- NOTE | 2024-12-11 12:07 | Electrocardiogram Report ---
Test Reason : Blood Pressure : */* mmHG Vent. Rate : 67 BPM Atrial Rate : 67 BPM P-R Int : 174 ms QRS Dur : 90 ms QT Int : 386 ms P-R-T Axes : * -9 -9 degrees QTcB Int : 407 ms Normal sinus rhythm possible Inferior infarct (cited on or before 10-Dec-2024) Abnormal ECG When compared with ECG of 10-Dec-2024 12:16, (unconfirmed) No significant change was found Confirmed by Kanu Brizuela ([id number]) on 12/11/2024 12:07:17 PM Referred By: REFERRED SELF Confirmed By: Kanu Brizuela
[2024-12-11 15:46] VITALS: O2SAT 95
[2024-12-11 16:50] VITALS: BP 166/101
[2024-12-11 16:54] VITALS: PULSE 76
--- NOTE | 2024-12-11 17:43 | Discharge Summary ---
Date of Service December 11, 2024 Admission HPI Per Admitting Provider This is a 54 y/o male with HTN, dyslipidemia, CKD3, prior malignant melanoma s/p excision and Keytruda, GERD, and other history as outlined below who presented to the ED today with left chest pain for the last 2-3 days. Pt reports initially developed some intermittent chest discomfort three nights ago. Yesterday, pain became more constant and started to radiate from left chest to left neck and shoulder. Pain is described as "like a pulled muscle" and was constant from two nights ago to around 9 am today. Pain is mostly resolved at presented, has some mild residual in left shoulder. Pain is worse with certain movements, specifically lifting his left arm. 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 Pt notes going to the chiropractor due to lower back pain right before this pain started. Denies neck pain but notes that chiropractor cracked his neck that day as well. He reports similar pain in 2018 when he was admitted for chest pain rule out. However, he has not really noticed the pain since that admission until this current episode. He had a negative stress echo in 2017, has not followed with cardiology outpatient. He was noted to have coronary calcifications on prior chest CT so cardiology recommended pt be on a statin. Pt denies tobacco or alcohol. He does consume large amounts of Mountain Dew soda. His mother was noted to have palpitations but denies history of premature CAD or known NE. Stress Echo 03/03/17 - normal exercise stress echo, noted to have borderline concentric LVH, LVEF 60-65% Admission Exam Per Admitting Provider Physical Exam: General: awake, alert, NAD HEENT: no scleral icterus, moist oral mucosa Neck: supple, trachea midline, no spinous process tenderness Heart: RRR, no M/G/R, no chest wall tenderness Lungs: CTA bilaterally, no W/R/R Abdomen: soft, NT, +BS Extremities: no significant pedal edema, distal pulses intact and equal MSK: left shoulder non-tender, mild pain in left shoulder with flexion/extension against resistance Skin: warm, dry, no jaundice or rashes Neurologic: Ox3, no confusion or dysarthria, moving all extremities without focal deficit noted Principal Diagnosis Chest pain-no ACS, hypertension Discharge Exam Lying in bed without any acute distress Constitutional well developed, well nourished and + obese; not ill appearing Eyes PERRL, conjunctivae normal, anicteric sclerae ENMT external ear and nose normal, oropharynx normal Neck trachea midline, no thyromegaly Respiratory no respiratory distress Auscultation: lungs clear to auscultation bilaterally Cardiovascular Rate/Rhythm: regular rate and regular rhythm; not tachycardic Heart Sounds: normal S1 and normal S2; no murmur Extremities: + edema (Trace edema bilaterally) Gastrointestinal (Abdomen) Inspection/Auscultation: normal bowel sounds; abdomen not distended Percussion/Palpation: abdomen soft; abdomen nontender Neurologic normal touch/pain/proprioception and moves all extremities; no focal motor deficits Psychiatric A+Ox3, euthymic affect Lymphatic no cervical or axillary lymphadenopathy Discharge Data Allergies Allergy/AdvReac Type Severity Reaction Status Date / Time No Known Allergies Allergy Verified 07/06/20 14:38 Consultations 12/10/24 13:44 ED Decision to Admit Stat 12/10/24 15:58 Consult Cardiology Routine Hospital Course (1) Chest pain: (2) Hypertension: (3) Coronary artery calcification seen on CT scan: (4) Dyslipidemia: (5) GERD without esophagitis: (6) CKD (chronic kidney disease) stage 3, GFR 30-59 ml/min: Plan This is a 54 y/o male with HTN, dyslipidemia, CKD3, prior malignant melanoma s/p excision and Keytruda, GERD, and other history as outlined below who presented to the ED today with left chest pain for the last 2-3 days. Pain worsened/more constant over the last 24-36 hours, though currently essentially resolved. Initial troponin negative, EKG personally reviewed and without significant ST changes. Referred for observation overnight to trend cardiac enzymes, monitory on telemetry due to multiple risk factors for cardiac disease including HTN, dyslipidemia, and obesity, as well as known prior coronary calcifications. #Chest pain - currently improved, seems more consistent with MSK etiology but in view of multiple risk factors for cardiac disease, will need to rule out cardiac etiology - Monitor on med telemetry overnight - Serial troponins remain unremarkable - Repeat EKG in the AM-did not show any acute ST-T wave changes - Update ECHO showed-normal LV function with EF 55 to 60%, impaired LV relaxation, mild aortic regurgitation, there is mild mitral regurgitation, and there is mild tricuspid regurgitation - Appreciate cardiology input and recommendationWill start small dose of Coreg 3.125 mg twice daily and also small dose of thiazide diuretic and outpatient stress testing - Lipid profile noted with triglyceride 190 and hemoglobin A1c 5.3 #Hypertension - Continue losartan 100 mg daily and monitor -Small dose of Coreg has been added and also small dose of thiazide diuretics #Dyslipidemia - Chronic, continue statin - Lipid panel in the AM-triglyceride elevated at 190 advised to lose weight #CKD3 - Chronic, stable - creatinine at baseline #GERD - Chronic, stable - no symptoms presently - Continue PPI for now Code status: full code per my discussion with pt and his DVT prophylaxis: Lovenox Discharged home this afternoon the blood pressure is maintained Total Time Total Time Spent Total Time Spent (In Minutes): 35 Minutes Discharge Plan Discharge Items Patient Disposition: Home - Self-Care Reason For Visit: CHEST PAIN Discharge Diagnosis: Chest pain-no ACS, hypertension Condition on Discharge: Good Activity: Resume your previous activity Non-emergency contact: Primary Care Provider Call non-emergency contact if: you have any medication questions and your symptoms worsen Follow-up/Referrals: Haris Hernandez MD [Primary Care Provider] - (Your doctor's office will give you a call on Thursday with an appointment within 7 days) Diet: Heart Healthy and Low Sodium (2gm) Addtl Attending Provider Instructions: Please take your medications as advised Check your blood pressure at home about 2 times a week and if it is high take rest and repeat after half an hour to an hour Please keep appointments with your healthcare provider Pending Studies at Discharge: No Stand-Alone Forms: [facility], Smoking Cessation Medications and DC Order Prescriptions: New carvedilol 3.125 mg Tablet 3.125 mg PO BIDM Qty: 60 0RF hydrochlorothiazide 25 mg Tablet 12.5 mg PO QAM Qty: 30 0RF Continued atorvastatin 20 mg tablet 20 mg PO QPM omeprazole 20 mg capsule,delayed release(DR/EC) 20 mg PO DAILY losartan 100 mg tablet 100 mg PO QPM Discharge Orders: Discharge Order (Routine); Ordered 12/11/24 Ordered By: Jorge Orozco/Other Patient Handouts: Hydrochlorothiazide Oral Tablet, Carvedilol Oral Tablet, Discharge Instructions for Angina, Blood Pressure Check Steps Admission Data Admit Date/Time: 12/10/24 14:14 Attending Provider: Jorge Peterson Admit Provider: Doug Barragan Primary Care Provider: Haris Hernanedz Other Providers: Doug Barragan; Vel Soriano; Marina Musa I. Other Interventions: Discharge Summary Assessment (RN) Last Done: 12/11/24 16:48
== END 2024-12-11 17:15 | disposition home or self-care (01) ==
LOC: ED 12:09 → 2N 12:09 → SUATTDRO 14:14 → 2N 15:40